=== PATIENT | male | born 1950 | race Caucasian/White ===

== ENCOUNTER 2020-09-28 06:26 | Day surgery (SDC) | payer MEDICARE, OTHER, SELFPAY ==
--- NOTE | 2020-09-27 09:43 | P.CONAN_ITS ---
Documented by User: Kristina Denton 09/27/20 11:56 HPI - Anesthesia Eval Consult details Narrative: 70yo M for Colonoscopy xarelto for afib [facility] Past Medical History Medical History Atrial fibrillation Elevated cholesterol HTN (hypertension) Surgical History Surgical History History of inguinal hernia repair History of placement of ear tubes History of shoulder surgery Hx of colonoscopy Social History Social History Alcohol intake: current Alcohol intake frequency: a few times a month Smoking Status: Former smoker Smoking Quit Date: >10 years Use of substances other than those prescribed or required for medical reasons: No Have you been hit, kicked, punched, or otherwise hurt by someone within the past year? If so, by whom?: No Advance Directives: No Advance Directives Information Provided: Yes Recently lost weight without trying: No Meds Allergies Allergy/AdvReac Type Severity Reaction Status Date / Time No Known Allergies Allergy Unverified 05/26/20 15:23 Home Medications Medication Instructions Recorded Confirmed Type metoprolol succinate 1 tab PO DAILY 09/27/20 09/28/20 History omega-3 fatty acids-vitamin E cap PO DAILY 09/27/20 History [Fish Oil] rivaroxaban [Xarelto] 1 tab PO BEDTIME 09/27/20 09/28/20 History simvastatin 1 tab PO BEDTIME 09/27/20 09/27/20 History Exam Exam Date and Time: September 27, 2020 0943 Assessment and Plan Assessment Anesthesia Assessment: Chart Reviewed Documented by User: Bogdan Montenegro MD 09/28/20 07:28 [facility] Past Medical History Medical History Atrial fibrillation Elevated cholesterol HTN (hypertension) Surgical History Surgical History History of inguinal hernia repair History of placement of ear tubes History of shoulder surgery Hx of colonoscopy Social History Social History Alcohol intake: current Alcohol intake frequency: a few times a month Smoking Status: Former smoker Smoking Quit Date: >10 years Use of substances other than those prescribed or required for medical reasons: No Have you been hit, kicked, punched, or otherwise hurt by someone within the past year? If so, by whom?: No Advance Directives: No Advance Directives Information Provided: Yes Recently lost weight without trying: No Meds Allergies Allergy/AdvReac Type Severity Reaction Status Date / Time No Known Allergies Allergy Unverified 05/26/20 15:23 Home Medications Medication Instructions Recorded Confirmed Type metoprolol succinate 1 tab PO DAILY 09/27/20 09/28/20 History omega-3 fatty acids-vitamin E cap PO DAILY 09/27/20 History [Fish Oil] rivaroxaban [Xarelto] 1 tab PO BEDTIME 09/27/20 09/28/20 History simvastatin 1 tab PO BEDTIME 09/27/20 09/27/20 History Exam Airway Mallampati Class: II TM Dist: >3cm Neck ROM: Full Loose/Missing/Broken Teeth: No Heart: RRR Lungs: NL Other: AO Assessment and Plan Assessment Anesthesia Assessment: Anesthesia Plan Discussed and Chart Reviewed Final Anesthetic Review NPO: Yes ASA Class: II Final Preanesthetic Review: No Changes in Pt Med Stat, Meds/Allgs Chart Reviewed, Consent Obtained/Reviewed and Anes Risks/Benef Reviewed Patient Risk: Intermediate Procedure Risk: Low Anesthetic Plan Anesthetic Plan: GA Disposition: Standard PACU
[2020-09-28 06:40] VITALS: BMI 30.9
[2020-09-28 06:46] VITALS: BP 170/67; PULSE 98; RESP 18; TEMP 36.1; O2SAT 96
[2020-09-28 06:56] VITALS: BP 148/95; PULSE 100; RESP 18; TEMP 36.1; O2SAT 96
[2020-09-28] MEDS: Lactated Ringers 1,000 ML 100 ML IVCONT (06:56)
[2020-09-28 08:14] VITALS: BP 96/59; PULSE 60; RESP 16; TEMP 36.7; O2SAT 96
--- NOTE | 2020-09-28 08:18 | PM.OP ---
Brief Operative Note Date of Service: 09/28/20 Pre-op diagnosis: Screening Post-op diagnosis: other (Colon polyps, Diverticulosis) Procedure: Colonoscopy to cecum and TI with biopsy and removal of polyps Surgeon: Zoran Medeiros Anesthesia: MAC Estimated blood loss (mL): 3.0 Pathology: other (A. Polyp at 20cm B. Polyp at 30cm C. Cecal polyp D. Polyp at 50cm) Condition: stable Disposition: PACU
[2020-09-28 08:29] VITALS: BP 116/68; PULSE 53; RESP 17; TEMP 36.7; O2SAT 98
--- NOTE | 2020-09-28 08:43 | OP_ITS ---
SURGEON: Zoran Medeiros MD INDICATIONS: The patient presents for evaluation of colorectal cancer screening and history of colon polyps. Full consent has been obtained from him for this, including risks of bleeding and perforation. PREOPERATIVE DIAGNOSIS: POSTOPERATIVE DIAGNOSIS: PROCEDURE PERFORMED: Colonoscopy to cecum and terminal ileum with biopsy and removal of polyps. ESTIMATED BLOOD LOSS: COMPLICATIONS: ANESTHESIA: Monitored anesthesia care. ASSISTANTS: SPECIMENS: PREOPERATIVE DIAGNOSES: Colorectal cancer screening and personal history of tubular adenoma of the colon. POSTOPERATIVE DIAGNOSES: Colorectal cancer screening and personal history of tubular adenoma of the colon, colon polyps, diverticulosis, and internal hemorrhoids. DESCRIPTION OF PROCEDURE: The patient was placed in the left lateral decubitus position. The digital rectal exam revealed a somewhat tight anal sphincter. The Olympus video pediatric colonoscope was entered into the rectum and advanced to the cecum with the assistance of abdominal wall pressure. Once in the cecum, I did identify normal-appearing cecal pouch other than a 3 or 4 mm polyp, which was biopsied and completely removed with cold biopsy forceps. The terminal ileum was cannulated and appeared normal. The scope was withdrawn back in the colon. The remainder of the cecum appeared normal. The scope was slowly withdrawn assessing all mucosal surfaces carefully. Preparation was excellent. At 50 cm, at 30 cm, and at 20 cm, were flat approximately 4 mm polyps, which were all biopsied and completely removed with cold biopsy forceps. I did not visualize any other polyps, colitis, or angiodysplasia. There was a mild amount of sigmoid diverticulosis. In the rectum, scope was retroflexed visualizing internal hemorrhoids, but no other pathology. The rectal mucosa appeared normal. The scope was straightened out and withdrawn from the patient. He tolerated the procedure well and was returned to the recovery area in stable condition. IMPRESSION: 1. Small colon polyps, status post biopsy removal. 2. Diverticulosis. 3. Internal hemorrhoids. PLAN: The results of the biopsies will be checked. I would recommend a repeat colonoscopy in 5 years for further surveillance. He was advised to resume his Xarelto within 48 hours. He will otherwise see me on a p.r.n. basis. MD MEAGAN Zee/GONZALEZL / [id number]
== END 2020-09-28 09:10 | disposition home or self-care (01) ==
PROVIDERS: Visit Provider Internal Medicine
PROC: 0DJD8ZZ Inspection of Lower Intestinal Tract, Via Natural or Artificial Opening Endoscopic (ICD-10-PCS; CPT 45378; principal; 2020-09-28 07:30)
DX: Z12.11 Encounter for screening for malignant neoplasm of colon (principal); Z86.010 Personal history of colon polyps; D12.0 Benign neoplasm of cecum; D12.5 Benign neoplasm of sigmoid colon; K57.30 Diverticulosis of large intestine without perforation or abscess without bleeding; K64.8 Other hemorrhoids; I48.91 Unspecified atrial fibrillation; I10 Essential (primary) hypertension; Z79.01 Long term (current) use of anticoagulants; Z79.899 Other long term (current) drug therapy; Z87.891 Personal history of nicotine dependence
CPT/HCPCS: 45380; 88305

== ENCOUNTER 2020-11-06 05:51 | Inpatient (IN) | payer MEDICARE, MEDICAID, SELFPAY ==
[2020-11-06] VITALS (9 sets, daily range): BP systolic 99–153; BP diastolic 54–86; PULSE 46–67; RESP 15–22; TEMP 36.6–37.2; O2SAT 95–98; BMI 23.1
--- NOTE | 2020-11-06 | ECG_ITS ---
Test Reason : CHEST PAIN Blood Pressure : / mmHG Vent. Rate : 047 BPM Atrial Rate : 047 BPM P-R Int : 150 ms QRS Dur : 090 ms QT Int : 456 ms P-R-T Axes : 039 -07 020 degrees QTc Int : 403 ms Sinus bradycardia with sinus arrhythmia Otherwise normal ECG When compared with ECG of 04-AUG-2019 17:35, No significant change was found Referred By: Generic ED Physician Electronically Signed By:LENNY ROSARIO
--- NOTE | ~2020-11-06 | XR_ITS ---
EXAMINATION: XR CHEST CLINICAL INFORMATION: Chest pain COMPARISON: Prior chest July 2019. TECHNIQUE: Frontal view of the chest was obtained. FINDINGS: Lungs and pleural spaces: Minimal linear opacity at the right base likely atelectasis. Lungs otherwise clear. Cardiac silhouette mediastinum pulmonary vascularity normal. Bone and soft tissues unremarkable. XR/XR chest 1V IMPRESSION: Minimal linear opacity at the right base likely discoid atelectasis.
--- NOTE | 2020-11-06 06:08 | ED_ITS ---
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 this morning without associated headache/dizziness/shortness of breath, but states he felt mildly nauseous and ate too close of garlic with resolution chest pain and went back to sleep. Unfortunately, patient was awoken again at 5:30 a.m. with the same character of pain that has completely resolved and patient states resolved when he stood up but because it has happened twice he chose to get further evaluated in the emergency room. Otherwise, he denies any recent fever, chills, cough, GI symptoms, or symptoms. He does endorse that he had been instructed to see a foam dispenser previously but decided not to go. Related Data Home Medications Medication Instructions Recorded Confirmed metoprolol succinate 1 tab PO DAILY 09/27/20 09/28/20 omega-3 fatty acids-vitamin E cap PO DAILY 09/27/20 [Fish Oil] rivaroxaban [Xarelto] 1 tab PO BEDTIME 09/27/20 09/28/20 simvastatin 1 tab PO BEDTIME 09/27/20 09/27/20 Allergies Allergy/AdvReac Type Severity Reaction Status Date / Time No Known Allergies Allergy Verified 11/06/20 06:01 Review of Systems Review of Systems: Pertinent positives and negatives as stated in HPI 10 point review of systems is otherwise negative. [facility] Past Medical History Source: nursing notes reviewed Medical History Atrial fibrillation Elevated cholesterol HTN (hypertension) Surgical History History of inguinal hernia repair History of placement of ear tubes History of shoulder surgery Hx of colonoscopy Social History Social History Alcohol intake: current Alcohol intake frequency: a few times a month Smoking Status: Former smoker Advance Directives: No Advance Directives Information Provided: No Physical Exam Vital Signs: Vital Signs: Last Vital Signs Temp 98 F 11/06/20 06:01 Pulse 48 L 02/28/21 07:24 Resp 18 11/06/20 07:24 BP 141/78 H 11/06/20 07:24 Pulse Ox 97 11/06/20 07:24 Body Mass Index 23.1 VITAL SIGNS: Reviewed. GENERAL: Well developed, well nourished, in no acute distress. HEAD: Normocephalic/atraumatic EYES: PERRLA, EOMI NOSE: Nares patent bilateral OROPHARYNX: no oral lesions noted, posterior pharynx clear NECK: Supple, no adenopathy LUNGS: Normal breath sounds. No adventitious sounds or accessory muscle use. SpO2<97> CARDIOVASCULAR: Regular rate and rhythm without noted murmurs, no JVD or lower extremity edema. ABDOMEN: Soft, non-tender, non-distended with bowel sounds. NEUROLOGIC: Alert and oriented x 4. Course Course Course Narrative: This is a 70-year-old male with history and clinical presentation most consistent with suspected acid reflux but will rule out cardiopulmonary etiologies. Review of all investigations negative for any acute findings other than an elevated high sensitivity troponin without correlating EKG changes and patient is currently asymptomatic. Will repeat the troponin and if negative patient may be discharged to home with strong recommendations to follow up with Cardiology. Signed out to Dr Dyer: f/u hsTrop #2 MDM - Chest Pain Lab Data Result diagrams: 11/06/20 06:34 11/06/20 06:34 Labs: Lab Results 11/06/20 11/06/20 11/06/20 Range/Units 06:34 06:34 06:34 WBC 9.5 (4.8-10.8) X10*3/uL RBC 4.63 (4.60-5.80) X10*6/uL Hgb 14.1 (14.0-18.0) g/dl Hct 43.0 (42-52) % MCV 92.9 (80-98) fL MCH 30.5 (27.0-33.0) pg MCHC 32.8 (31.0-36.0) g/dl RDW 13.6 (11.0-16.0) % Plt Count 192 (160-400) X10*3/uL MPV 11.8 (9.4-12.4) fL Immature Gran % (Auto) 0.4 (0.0-0.4) % Neut % (Auto) 51.7 (45-73) % Lymph % (Auto) 27.3 (20-40) % [place] % (Auto) 10.2 (2-11) % Eos % (Auto) 9.7 H (0-4) % Baso % (Auto) 0.7 (0-2) % Lymph # (Auto) 2.6 (1.2-4.9) X10*3/uL [place] # (Auto) 1.0 (0.1-1.2) X10*3/uL Eos # (Auto) 0.9 H (0.0-0.4) X10*3/uL Baso # (Auto) 0.1 (0.0-0.2) X10*3/uL Abs Immat Gran (auto) 0.04 H (0.00-0.03) X10*3/uL Absolute Neuts (auto) 4.9 (2.0-8.3) X10*3/uL Absolute Nucleated RBC 0.000 (0.0-0.012) X10*3/uL Nucleated RBC % (auto) 0.0 (0.0-0.2) /100WBC PT (10.8-13.0) SEC INR (0.9-1.1) Sodium 140 (135-145) mmol/L Potassium 3.8 (3.3-5.1) mmol/L Chloride 106 (96-108) mmol/L Carbon Dioxide 29 (22-29) mmol/L Anion Gap 9 L (12-20) BUN 22 H (9-16) mg/dL Creatinine 0.81 (0.5-1.4) mg/dL Estim Creat Clear Calc 69.0 Estimated GFR > 60 Random Glucose 96 (60-115) mg/dL Calcium 8.4 (8.4-10.2) mg/dL Total Bilirubin 0.6 (0.0-1.0) mg/dL AST 12 (5-37) U/L ALT 16 (0-40) U/L Alkaline Phosphatase 80 (39-117) U/L Troponin I High Sens 95.4 H (<3.5-35.0) ng/L Total Protein 6.2 L (6.5-8.0) g/dL Albumin 3.8 (3.5-5.0) g/dL 11/06/20 Range/Units 06:34 WBC (4.8-10.8) X10*3/uL RBC (4.60-5.80) X10*6/uL Hgb (14.0-18.0) g/dl Hct (42-52) % MCV (80-98) fL MCH (27.0-33.0) pg MCHC (31.0-36.0) g/dl RDW (11.0-16.0) % Plt Count (160-400) X10*3/uL MPV (9.4-12.4) fL Immature Gran % (Auto) (0.0-0.4) % Neut % (Auto) (45-73) % Lymph % (Auto) (20-40) % [place] % (Auto) (2-11) % Eos % (Auto) (0-4) % Baso % (Auto) (0-2) % Lymph # (Auto) (1.2-4.9) X10*3/uL [place] # (Auto) (0.1-1.2) X10*3/uL Eos # (Auto) (0.0-0.4) X10*3/uL Baso # (Auto) (0.0-0.2) X10*3/uL Abs Immat Gran (auto) (0.00-0.03) X10*3/uL Absolute Neuts (auto) (2.0-8.3) X10*3/uL Absolute Nucleated RBC (0.0-0.012) X10*3/uL Nucleated RBC % (auto) (0.0-0.2) /100WBC PT 11.3 (10.8-13.0) SEC INR 1.0 (0.9-1.1) Sodium (135-145) mmol/L Potassium (3.3-5.1) mmol/L Chloride (96-108) mmol/L Carbon Dioxide (22-29) mmol/L Anion Gap (12-20) BUN (9-16) mg/dL Creatinine (0.5-1.4) mg/dL Estim Creat Clear Calc Estimated GFR Random Glucose (60-115) mg/dL Calcium (8.4-10.2) mg/dL Total Bilirubin (0.0-1.0) mg/dL AST (5-37) U/L ALT (0-40) U/L Alkaline Phosphatase (39-117) U/L Troponin I High Sens (<3.5-35.0) ng/L Total Protein (6.5-8.0) g/dL Albumin (3.5-5.0) g/dL ECG Data ECG #1: Attestation: I personally reviewed and interpreted this ECG as follows: Prior ECG tracings: available for review (08/04/2019 no acute changes on comparison) Interpretation: Sinus bradycardia, HR -47, no evidence of acute ischemia, [place]/QRS/QTC are within normal limits. Discharge Plan Discharge Prescriptions: No Action simvastatin 20 mg tablet 1 tab PO BEDTIME RF: 0 metoprolol succinate 25 mg tablet extended release 24 hr 1 tab PO DAILY RF: 0 Fish Oil 1,000 mg Capsule PO DAILY RF: 0 Xarelto 20 mg tablet 1 tab PO BEDTIME RF: 0
[2020-11-06] MEDS: Lidocaine HCl Viscous 2 % 15 ML SOLUTION 10 ML MUCOUS MEM (06:18)
[2020-11-06] MEDS: Magnesium Hydrox/Alum Hydrox 30 ML ORAL.SUSP PO (06:18)
[2020-11-06 06:42] LABS: MANUAL DIFF FLAG NO
[2020-11-06 06:46] LABS: Basophils Absolute Auto 0.1 X10*3/uL (0.0-0.2); Basophils Percent Auto 0.7 % (0-2); Eosinophils Absolute Auto 0.9 X10*3/uL (0.0-0.4); Eosinophils Percent Auto 9.7 % (0-4); Hemoglobin 14.1 g/dl (14.0-18.0); Imm Gran Abs Auto 0.04 X10*3/uL (0.00-0.03); Imm Gran Pct Auto 0.4 % (0.0-0.4); Lymphocytes Absolute Auto 2.6 X10*3/uL (1.2-4.9); Lymphocytes Percent Auto 27.3 % (20-40); Mean Corpuscular HGB Conc 32.8 g/dl (31.0-36.0); Mean Corpuscular Hemoglobin 30.5 pg (27.0-33.0); Mean Corpuscular Volume 92.9 fL (80-98); Mean Platelet Volume 11.8 fL (9.4-12.4); Monocytes Percent Auto 10.2 % (2-11); Neutrophils Absolute Auto 4.9 X10*3/uL (2.0-8.3); Neutrophils Percent Auto 51.7 % (45-73); Platelet Count 192 X10*3/uL (160-400); Red Blood Count 4.63 X10*6/uL (4.60-5.80); Red Cell Distribution Width 13.6 % (11.0-16.0); White Blood Count 9.5 X10*3/uL (4.8-10.8)
[2020-11-06 07:16] LABS: Alanine Aminotransferase 16 U/L (0-40); Albumin Level 3.8 g/dL (3.5-5.0); Alkaline Phosphatase 80 U/L (39-117); Aspartate Amino Transferase 12 U/L (5-37); Bilirubin Total 0.6 mg/dL (0.0-1.0); Blood Urea Nitrogen 22 mg/dL (9-16); Calcium 8.4 mg/dL (8.4-10.2); Estimated Glomerular Filt Rate > 60; Glucose Random 96 mg/dL (60-115); Total Protein 6.2 g/dL (6.5-8.0)
[2020-11-06 07:20] LABS: Troponin-I High Sensitivity 95.4 ng/L (<3.5-35.0)
[2020-11-06 07:24] LABS: Anion Gap 9 (12-20); Carbon Dioxide 29 mmol/L (22-29); Chloride 106 mmol/L (96-108); Potassium 3.8 mmol/L (3.3-5.1); Sodium 140 mmol/L (135-145)
[2020-11-06 08:12] LABS: Prothrombin Time 11.3 SEC (10.8-13.0)
[2020-11-06 09:43] LABS: Troponin-I High Sensitivity 155.4 ng/L (<3.5-35.0)
[2020-11-06] MEDS: Aspirin 81 MG TAB.CHEW 162 MG PO (10:09)
[2020-11-06 10:29] LABS: Partial Thromboplastin Time 35.2 SEC (24.1-38.0)
[2020-11-06] MEDS: Atorvastatin Calcium 80 MG TABLET PO (10:31)
[2020-11-06] MEDS: Enoxaparin Sodium 60 MG/0.6 ML SYRINGE SUBCUT ×2 (10:35→21:35)
--- NOTE | 2020-11-06 10:55 | P.CONCA_ITS ---
History of Present Illness History of Present Illness Date of Service: 11/06/20 Consult reason: other (Acute coronary syndrome) Chief complaint: CHEST BURNING Narrative: Thank you for asking us to see Tasha in cardiology consultation today. He is a pleasant active 70-year-old man who woke up this morning around 03:00 with retrosternal chest burning. He then took some garlic symptoms receded and he went back to sleep. Symptoms then recurred around 05:00. Then symptoms receded again and then started again and he decided to come to the emergency room. In the emergency room on evaluation his 1st troponin was 95.4 and subsequent troponin 155.4 with more than 50% delta. He is currently feeling completely back to normal. His EKG has not been uploaded into the system. However reported by the ED physician is no significant ischemic changes. He is currently chest pain free. He says in the last year he has had few episodes of precordial retrosternal chest burning some with exertion some without. He did not pay much attention to it. He has prior history of hypertension, hyperlipidemia and strong family history for coronary disease. His blood pressu re is elevated. His heart rate is low, takes metoprolol at home. Review of Systems Constitutional: Constitutional: Denies chills, Denies fatigue, Denies fever(s) and Denies poor appetite Cardiovascular: Cardiovascular: Reports chest pain at rest, Denies lightheadedness, Denies Loss of Consciousness, Denies palpitations, Denies dyspnea and Denies dyspnea on exertion Respiratory: Respiratory: Denies cough, Denies excessive phlegm production, Denies dyspnea and Denies dyspnea on exertion Gastrointestinal: Gastrointestinal: Reports no additional gastrointestinal complaints Genitourinary: Genitourinary: Reports no additional male genitourinary complaints Neurologic: Reports system reviewed and no additional complaints, except as documented Psychiatric: Psychiatric: Reports no additional psychiatric complaints Endocrine: Endocrine: Reports no additional endocrine complaints, Denies fatigue and Denies palpitations Hematologic/Lymphatic: Hematologic/Lymphatic: Reports no additional hematologic/lymphatic complaints [facility] Past Medical History Medical History Atrial fibrillation Elevated cholesterol HTN (hypertension) Surgical History Surgical History History of inguinal hernia repair History of placement of ear tubes History of shoulder surgery Hx of colonoscopy Social History Social History Alcohol intake: current Alcohol intake frequency: a few times a month Smoking Status: Former smoker Advance Directives: No Advance Directives Information Provided: No Meds Allergies Allergy/AdvReac Type Severity Reaction Status Date / Time No Known Allergies Allergy Verified 11/06/20 06:01 Home Medications Medication Instructions Recorded Confirmed Last Taken Type metoprolol succinate 1 tab PO DAILY 09/27/20 09/28/20 09/28/20 History omega-3 fatty acids-vitamin E cap PO DAILY 09/27/20 09/19/20 History [Fish Oil] rivaroxaban [Xarelto] 1 tab PO BEDTIME 09/27/20 09/28/20 09/19/20 History simvastatin 1 tab PO BEDTIME 09/27/20 09/27/20 Unknown History Physical Exam Vital Signs: Vital Signs: Last Vital Signs Temp 98 F 11/06/20 06:01 Pulse 46 L 11/06/20 10:00 Resp 15 11/06/20 10:00 BP 153/86 H 11/06/20 10:00 Pulse Ox 98 11/06/20 10:00 Body Mass Index 23.1 Const: General: cooperative, comfortable, no acute distress, well developed, alert and awake Nutritional Appearance: average body habitus Orientation/consciousness: patient oriented x3 Limitations: no limitations HENMT: Head: Yes normocephalic and Yes atraumatic Neck: Neck: Yes trachea midline, Yes supple and Yes no JVD Resp: Effort & Inspection: normal respiratory effort Auscultation: clear to auscultation bilaterally Cardio: Jugular venous distension: no JVD Palpation: normal PMI Rate: regular rate Rhythm: regular rhythm Heart sounds: S1 normal heart sound present and S2 normal heart sound present GI: Auscultation: normal bowel sounds Skin: General skin exam: no rashes or lesions noted Neuro: General: patient oriented x3 and no focal motor deficits Extrem: General: Yes no clubbing, cyanosis or edema Psych: Appearance: grossly normal Results Labs and Meds Result diagrams: 11/06/20 06:34 11/06/20 06:34 Lab results: Laboratory Results - last 24 hr 11/06/20 11/06/20 11/06/20 06:34 06:34 06:34 WBC 9.5 RBC 4.63 Hgb 14.1 Hct 43.0 MCV 92.9 MCH 30.5 MCHC 32.8 RDW 13.6 Plt Count 192 MPV 11.8 Immature Gran % (Auto) 0.4 Neut % (Auto) 51.7 Lymph % (Auto) 27.3 [place] % (Auto) 10.2 Eos % (Auto) 9.7 H Baso % (Auto) 0.7 Lymph # (Auto) 2.6 [place] # (Auto) 1.0 Eos # (Auto) 0.9 H Baso # (Auto) 0.1 Abs Immat Gran (auto) 0.04 H Absolute Neuts (auto) 4.9 Absolute Nucleated RBC 0.000 Nucleated RBC % (auto) 0.0 PT INR APTT Sodium 140 Potassium 3.8 Chloride 106 Carbon Dioxide 29 Anion Gap 9 L BUN 22 H Creatinine 0.81 Estim Creat Clear Calc 69.0 Estimated GFR > 60 Random Glucose 96 Calcium 8.4 Total Bilirubin 0.6 AST 12 ALT 16 Alkaline Phosphatase 80 Troponin I High Sens 95.4 H Total Protein 6.2 L Albumin 3.8 11/06/20 11/06/20 06:34 09:08 WBC RBC Hgb Hct MCV MCH MCHC RDW Plt Count MPV Immature Gran % (Auto) Neut % (Auto) Lymph % (Auto) [place] % (Auto) Eos % (Auto) Baso % (Auto) Lymph # (Auto) [place] # (Auto) Eos # (Auto) Baso # (Auto) Abs Immat Gran (auto) Absolute Neuts (auto) Absolute Nucleated RBC Nucleated RBC % (auto) PT 11.3 INR 1.0 APTT 35.2 Sodium Potassium Chloride Carbon Dioxide Anion Gap BUN Creatinine Estim Creat Clear Calc Estimated GFR Random Glucose Calcium Total Bilirubin AST ALT Alkaline Phosphatase Troponin I High Sens 155.4 H D Total Protein Albumin Imaging Radiologist's impression: Impressions Chest X-Ray 11/06/20 06:05 IMPRESSION: Minimal linear opacity at the right base likely discoid atelectasis. Assessment and Plan (1) Acute coronary syndrome: Status: Acute Patient presents with symptoms consistent with acute coronary syndrome with troponin elevation with more than 50% delta. EKG does not show any significant changes. Continue to manage aggressively ischemia. Control blood pressure, start nitro paste. Hold off on metoprolol given his bradycardia at this point time. Aspirin, full anticoagulation with Lovenox and high-intensity statin therapy to be started. Currently patient is chest pain-free. Will require cardiac catheterization. Had a detailed discussion with patient a card iac catheterization including risks, benefits, alternatives 2nd opinion. This being the most prep febrile approach. He has understand and agreeable. Will most likely transfer to [facility] tomorrow after an echocardiogram. He has history of ?atrial fibrillation?, no clear documentat ion. Will need to be pursued as outpatient. Currently not on oral anticoagulation. Will follow with the patient. Thank you for allowing us to partake in his care Procedures Date of Service Date of Service: 11/06/20
[2020-11-06 11:27] LABS: COVID-19 Test Negative (Negative)
--- NOTE | 2020-11-06 12:42 | P.HPHOSP_ITS ---
History of Present Illness Date of Service: 11/06/20 Chief Complaint: Chest pain This is a 70 year old male with history of HTN, HLD who presents with burning chest pain. His pain started around 3 am and was described as burning in nature and 20/10 in severity. He had associated nausea, but not shortness of breath. His symptoms resolved but then returned around 530. This prompted him to come to the emergency department for evaluation. He reports previous episodes that were similar but never as severe. His initial troponin was 95 this increased to 155. The cardiologists were consulted and recommended starting anticoagulation with Lovenox and admission for further management. EKG showed no acute ischemic changes. The remainder of his lab work was unremarkable. Review of Systems Review of Systems: Yes all other systems are reviewed and are negative Constitutional: Constitutional: Denies chills and Denies fever(s) Cardiovascular: Cardiovascular: Reports chest pain and Denies palpitations Respiratory: Respiratory: Denies cough Gastrointestinal: Gastrointestinal: Denies abdominal pain Endocrine: Endocrine: Denies palpitations [facility] Medical History Atrial fibrillation Elevated cholesterol HTN (hypertension) Functional capacity: independent ambulation Family History Other CAD (coronary artery disease) Surgical History History of inguinal hernia repair History of placement of ear tubes History of shoulder surgery Hx of colonoscopy Social History Alcohol intake: current Alcohol intake frequency: a few times a month Smoking Status: Former smoker Advance Directives: No Advance Directives Information Provided: No Meds Allergies Allergy/AdvReac Type Severity Reaction Status Date / Time No Known Allergies Allergy Verified 11/06/20 06:01 Active Medications: Current Medications Generic Name Dose Route Start Last Admin Trade Name Freq PRN Reason Stop Dose Admin Enoxaparin Sodium 60 mg 11/06/20 12:33 Enoxaparin Sodium 80 Mg/0.8 Ml Syringe 1 mg/kg (60 mg) SUBCUT Q12H [facility] Nitroglycerin 1 inch 11/06/20 14:00 Nitroglycerin 2 % Oint 1 Gm Packet TRANSDERMA RQ6H WHILE AWAKE TOMER Home Medications Medication Instructions Recorded Confirmed Last Taken Type metoprolol succinate 1 tab PO DAILY 09/27/20 09/28/20 11/05/20 History omega-3 fatty acids-vitamin E cap PO DAILY 09/27/20 11/05/20 History [Fish Oil] rivaroxaban [Xarelto] 1 tab PO BEDTIME 09/27/20 09/28/20 09/19/20 History simvastatin 1 tab PO BEDTIME 09/27/20 09/27/20 11/05/20 History Physical Exam Vital Signs and Narrative: Vital Signs: Last Vital Signs Temp 98 F 11/06/20 06:01 Pulse 46 L 11/06/20 10:00 Resp 15 11/06/20 10:00 BP 153/86 H 11/06/20 10:00 Pulse Ox 98 11/06/20 10:00 Body Mass Index 23.1 Const: Nutritional Appearance: well nourished Orientation/consciousness: patient oriented x3 HENMT: Head: Yes normocephalic and Yes atraumatic Eyes: Sclerae: sclerae normal Chest: Chest palpation & inspection: normal inspection of the chest Resp: Effort & Inspection: normal respiratory effort and no respiratory distress Auscultation: clear to auscultation bilaterally Cardio: Rate: regular rate Rhythm: regular rhythm GI: Palpation (GI): Soft to palpation and nontender Skin: General skin exam: no rashes or lesions noted Neuro: General: patient oriented x3 Cranial nerves: Yes CN's II-XII intact bilaterally and Yes Bilaterally intact EOM present Extrem: General: Yes normal to inspection Results Labs CBC and Chem 7: 11/06/20 06:34 11/06/20 06:34 Labs: Laboratory Results - last 24 hr 11/06/20 11/06/20 11/06/20 06:34 06:34 06:34 MCV 92.9 MCH 30.5 MCHC 32.8 RDW 13.6 Plt Count 192 MPV 11.8 Immature Gran % (Auto) 0.4 Neut % (Auto) 51.7 Lymph % (Auto) 27.3 [place] % (Auto) 10.2 Eos % (Auto) 9.7 H Baso % (Auto) 0.7 Lymph # (Auto) 2.6 [place] # (Auto) 1.0 Eos # (Auto) 0.9 H Baso # (Auto) 0.1 Abs Immat Gran (auto) 0.04 H Absolute Neuts (auto) 4.9 Absolute Nucleated RBC 0.000 Nucleated RBC % (auto) 0.0 PT INR APTT Anion Gap 9 L Estim Creat Clear Calc 69.0 Estimated GFR > 60 Random Glucose 96 Calcium 8.4 Total Bilirubin 0.6 AST 12 ALT 16 Alkaline Phosphatase 80 Troponin I High Sens 95.4 H Total Protein 6.2 L Albumin 3.8 COVID-19 ([facility]) COVID-19 Clin Com 11/06/20 11/06/20 11/06/20 06:34 09:08 11:05 MCV MCH MCHC RDW Plt Count MPV Immature Gran % (Auto) Neut % (Auto) Lymph % (Auto) [place] % (Auto) Eos % (Auto) Baso % (Auto) Lymph # (Auto) [place] # (Auto) Eos # (Auto) Baso # (Auto) Abs Immat Gran (auto) Absolute Neuts (auto) Absolute Nucleated RBC Nucleated RBC % (auto) PT 11.3 INR 1.0 APTT 35.2 Anion Gap Estim Creat Clear Calc Estimated GFR Random Glucose Calcium Total Bilirubin AST ALT Alkaline Phosphatase Troponin I High Sens 155.4 H D Total Protein Albumin COVID-19 ([facility]) Negative COVID-19 Clin Com See Note Imaging Radiologist's Impressions: Impressions Chest X-Ray 11/06/20 06:05 IMPRESSION: Minimal linear opacity at the right base likely discoid atelectasis. Assessment and Plan (1) Non-STEMI (non-ST elevated myocardial infarction): Status: Acute This is a 70 year old male with a history of HTN, HLD who presents to the ED with Chest pain found to have NSTEMI NSTEMI -asa, statin -hold BB for bradycardia -AC with Lovenox -ECHO -trend troponin -nitro paste q6h -eval by cardiology, plan for d/c to [facility] tomorrow for cardiac cath afib ?on xarelto at home but stopped taking 1 week ago due to bleeding gums Med rec pending at this time DVT ppx - lovenox code status - full code this case was discussed with Dr. Peres
[2020-11-06] MEDS: Nitroglycerin 2 % Oint 1 GM Packet 1 INCH TRANSDERMA (13:49)
[2020-11-06] MEDS: 0.9 % Sodium Chloride Flush 3 ML SYRINGE IVFLUSH ×2 (19:22→23:53)
[2020-11-07 03:18] VITALS: BP 108/68; PULSE 75; RESP 18; TEMP 36.3; O2SAT 96
[2020-11-07 06:41] LABS: MANUAL DIFF FLAG NO
[2020-11-07 06:51] LABS: Basophils Absolute Auto 0.1 X10*3/uL (0.0-0.2); Basophils Percent Auto 0.7 % (0-2); Eosinophils Absolute Auto 0.9 X10*3/uL (0.0-0.4); Hematocrit 42.7 % (42-52); Hemoglobin 13.9 g/dl (14.0-18.0); Imm Gran Abs Auto 0.04 X10*3/uL (0.00-0.03); Imm Gran Pct Auto 0.4 % (0.0-0.4); Lymphocytes Absolute Auto 2.6 X10*3/uL (1.2-4.9); Lymphocytes Percent Auto 26.2 % (20-40); Mean Corpuscular HGB Conc 32.6 g/dl (31.0-36.0); Mean Corpuscular Hemoglobin 30.2 pg (27.0-33.0); Mean Corpuscular Volume 92.6 fL (80-98); Mean Platelet Volume 12.3 fL (9.4-12.4); Monocytes Absolute Auto 1.1 X10*3/uL (0.1-1.2); Neutrophils Absolute Auto 5.2 X10*3/uL (2.0-8.3); Neutrophils Percent Auto 52.7 % (45-73); Platelet Count 192 X10*3/uL (160-400); Red Blood Count 4.61 X10*6/uL (4.60-5.80); Red Cell Distribution Width 13.6 % (11.0-16.0); White Blood Count 9.8 X10*3/uL (4.8-10.8)
[2020-11-07 07:21] VITALS: BP 122/69; PULSE 54; RESP 16; TEMP 36.6; O2SAT 94
[2020-11-07 07:29] LABS: Anion Gap 11 (12-20); Blood Urea Nitrogen 21 mg/dL (9-16); Calcium 8.3 mg/dL (8.4-10.2); Carbon Dioxide 29 mmol/L (22-29); Chloride 105 mmol/L (96-108); Estimated Glomerular Filt Rate > 60; Glucose Random 96 mg/dL (60-115); Sodium 141 mmol/L (135-145)
--- NOTE | 2020-11-07 08:57 | MHC.CM.PN ---
CM met with Patient and his Granddaughter,who is a [employer] Employee, at bedside. Patient lives alone in an apartment with no DME nor services. Patient is being transferred to [facility] later today. IMM addressed with Patient and original has been given to him and a copy has been placed on the chart.
[2020-11-07] MEDS: Enoxaparin Sodium 60 MG/0.6 ML SYRINGE SUBCUT (09:12)
[2020-11-07] MEDS: Aspirin 81 MG TAB.CHEW PO (09:13)
[2020-11-07] MEDS: 0.9 % Sodium Chloride Flush 3 ML SYRINGE IVFLUSH ×2 (09:14→15:57)
--- NOTE | 2020-11-07 09:48 | PM.DS ---
DS: Providers Provider Date of Service: 11/07/20 Date of admission: 11/06/20 12:33 Primary care physician: [facility] Consults: 11/06/20 10:11 Consult to Cardiology Stat Consulting Provider: Herb Carrasco Reason for consultation: NSTEMI Has provider been notified: Yes DS: Diagnosis Discharge Diagnosis (1) Non-STEMI (non-ST elevated myocardial infarction): Status: Acute (2) Atrial fibrillation: Status: Acute (3) Bradycardia: Status: Acute DS: Medications Discharge Medications Home Medications: Home Medications Medication Instructions Recorded Confirmed omega-3 fatty acids-vitamin E 1 cap PO DAILY 09/27/20 11/06/20 Previous Rx's Medication Instructions Recorded aspirin 81 mg PO DAILY #30 tab 11/07/20 atorvastatin 80 mg PO BEDTIME #30 tab 11/07/20 enoxaparin 60 mg SUBCUT Q12H #60 ml 11/07/20 DS: Summary Hospital Course Hospital Course: Patient was admitted for non ST elevation myocardial infarction. His troponin peaked at 155.4, no significant ischemic EKG changes. His Xarelto was held and he was started on therapeutic Lovenox, his metoprolol was discontinued due to bradycardia, he was given aspirin and statin therapy was increased to high-intensity. Patient's chest pain has now resolved. Echocardiogram was done, but report is still pending. Patient was seen by Cardiology recommended transfer to [facility] for cardiac catheterization. Time Spent with Patient Time attestation: Total time spent providing and/or coordinating discharge services: Discharge coordination time: Greater than 30 minutes Physical Exam Vital Signs: Vital Signs: Last Vital Signs Temp 97.8 F 11/07/20 07:21 Pulse 54 11/07/20 07:21 Resp 16 11/07/20 07:21 BP 122/69 11/07/20 07:21 Pulse Ox 94 11/07/20 07:21 Body Mass Index 23.1 General: AO X 3, no acute distress Resp: CTA bilateral CVS: S1,S2,RRR GI: soft, non tender, non distended Neuro: motor grossly intact Psych: appropriate affect DS: Data Data Completed and Pending Labs on day of discharge: Laboratory Results - last 24 hr 11/06/20 11/06/20 11/06/20 06:34 11:05 13:22 WBC RBC Hgb Hct MCV MCH MCHC RDW Plt Count MPV Immature Gran % (Auto) Neut % (Auto) Lymph % (Auto) [place] % (Auto) Eos % (Auto) Baso % (Auto) Lymph # (Auto) [place] # (Auto) Eos # (Auto) Baso # (Auto) Abs Immat Gran (auto) Absolute Neuts (auto) Absolute Nucleated RBC Nucleated RBC % (auto) APTT 35.2 Sodium Potassium Chloride Carbon Dioxide Anion Gap BUN Creatinine Estim Creat Clear Calc Estimated GFR Random Glucose Calcium Troponin I High Sens 102.0 H COVID-19 ([facility]) Negative COVID-19 Clin Com See Note 11/07/20 11/07/20 06:05 06:05 WBC 9.8 RBC 4.61 Hgb 13.9 L Hct 42.7 MCV 92.6 MCH 30.2 MCHC 32.6 RDW 13.6 Plt Count 192 MPV 12.3 Immature Gran % (Auto) 0.4 Neut % (Auto) 52.7 Lymph % (Auto) 26.2 [place] % (Auto) 11.0 Eos % (Auto) 9.0 H Baso % (Auto) 0.7 Lymph # (Auto) 2.6 [place] # (Auto) 1.1 Eos # (Auto) 0.9 H Baso # (Auto) 0.1 Abs Immat Gran (auto) 0.04 H Absolute Neuts (auto) 5.2 Absolute Nucleated RBC 0.000 Nucleated RBC % (auto) 0.0 APTT Sodium 141 Potassium 4.0 Chloride 105 Carbon Dioxide 29 Anion Gap 11 L BUN 21 H Creatinine 0.81 Estim Creat Clear Calc 69.0 Estimated GFR > 60 Random Glucose 96 Calcium 8.3 L Troponin I High Sens COVID-19 ([facility]OLOR[facility]) COVID-19 Clin Com Discharge Plan Discharge Patient Disposition: Xfer Acute Care Hospital Referrals: [place] [Primary Care Provider] - Discharge Medications: New atorvastatin 80 mg Tablet 80 mg PO BEDTIME Qty: 30 RF: 0 aspirin 81 mg Tablet,Chewable 81 mg PO DAILY Qty: 30 RF: 0 enoxaparin 60 mg/0.6 mL Syringe 60 mg subcut Q12H Qty: 60 RF: 0 Continued omega-3 fatty acids-vitamin E 1,000 mg Capsule 1 cap PO DAILY RF: 0 Discontinued simvastatin 20 mg tablet 1 tab PO BEDTIME RF: 0 metoprolol succinate 25 mg tablet extended release 24 hr 1 tab PO DAILY RF: 0 Xarelto 20 mg tablet 1 tab PO BEDTIME RF: 0 Discharge Orders: Discharge Order (Routine); Ordered 11/07/20 Ordered By: Federico Youngblood Activity on Discharge: As tolerated Stand Alone Forms: Patient Portal Discharge page Care Plan Goals: work up ischemia Health Concerns: acs Plan of Treatment: transfer to [facility] for catheterization
--- NOTE | 2020-11-07 09:49 | P.PNCA_ITS ---
Subjective Subjective Date of Service: 11/07/20 Interval history: He had chest burning at nighttime leading to admission. Has had previous episodes of chest burning but nothing of this intensity. Otherwise he does not have any exertional anginal-type symptoms. Today states that he feels okay. Review of Systems Review of Systems Yes all other systems are reviewed and are negative Cardiovascular: Reports as per HPI, Reports no additional cardiovascular complaints, Denies acrocyanosis, Denies cool extremities, Denies painful fingertips, Denies chest pain, Denies chest pain at rest, Denies diaphoresis, Denies syncope, Denies irregular heart rhythm, Denies claudication, Denies leg edema, Denies lightheadedness, Denies palpitations and Denies dyspnea Respiratory: Denies dyspnea Denies syncope Endocrine: Denies palpitations Physical Exam Vital Signs: Last Vital Signs Temp 97.8 F 11/07/20 07:21 Pulse 54 11/07/20 07:21 Resp 16 11/07/20 07:21 BP 122/69 11/07/20 07:21 Pulse Ox 94 11/07/20 07:21 Body Mass Index 23.1 Const General: cooperative, comfortable and no acute distress Orientation/consciousness: patient oriented x3 HENPR Other: Unremarkable Neck Neck: Yes normal visual inspection Chest Chest palpation & inspection: normal inspection of the chest Resp Auscultation: clear to auscultation bilaterally, no crackles and no wheezes Cardio Jugular venous distension: no JVD Palpation: normal PMI Heart sounds: S1 normal heart sound present, S2 normal heart sound present, no gallops, no murmurs and no rubs GI Palpation (GI): Soft to palpation Back/Spine/Pelvis Other: unremarkable Skin General skin exam: no rashes or lesions noted Neuro General: patient oriented x3 Extrem General: Yes no clubbing, cyanosis or edema Psych Mental Status: mental status grossly normal Results Labs and Meds Result diagrams: 11/07/20 06:05 11/07/20 06:05 Lab results: Laboratory Results - last 24 hr 11/06/20 11/06/20 11/06/20 06:34 11:05 13:22 WBC RBC Hgb Hct MCV MCH MCHC RDW Plt Count MPV Immature Gran % (Auto) Neut % (Auto) Lymph % (Auto) [place] % (Auto) Eos % (Auto) Baso % (Auto) Lymph # (Auto) [place] # (Auto) Eos # (Auto) Baso # (Auto) Abs Immat Gran (auto) Absolute Neuts (auto) Absolute Nucleated RBC Nucleated RBC % (auto) APTT 35.2 Sodium Potassium Chloride Carbon Dioxide Anion Gap BUN Creatinine Estim Creat Clear Calc Estimated GFR Random Glucose Calcium Troponin I High Sens 102.0 H COVID-19 ([facility]OLOR[facility]) Negative COVID-19 Clin Com See Note 11/07/20 11/07/20 06:05 06:05 WBC 9.8 RBC 4.61 Hgb 13.9 L Hct 42.7 MCV 92.6 MCH 30.2 MCHC 32.6 RDW 13.6 Plt Count 192 MPV 12.3 Immature Gran % (Auto) 0.4 Neut % (Auto) 52.7 Lymph % (Auto) 26.2 [place] % (Auto) 11.0 Eos % (Auto) 9.0 H Baso % (Auto) 0.7 Lymph # (Auto) 2.6 [place] # (Auto) 1.1 Eos # (Auto) 0.9 H Baso # (Auto) 0.1 Abs Immat Gran (auto) 0.04 H Absolute Neuts (auto) 5.2 Absolute Nucleated RBC 0.000 Nucleated RBC % (auto) 0.0 APTT Sodium 141 Potassium 4.0 Chloride 105 Carbon Dioxide 29 Anion Gap 11 L BUN 21 H Creatinine 0.81 Estim Creat Clear Calc 69.0 Estimated GFR > 60 Random Glucose 96 Calcium 8.3 L Troponin I High Sens COVID-19 ([facility]IA DOLORES) COVID-19 Clin Com Progress Note: A&P Assessment and plan (1) Non-STEMI (non-ST elevated myocardial infarction): Status: Acute (2) PAF (paroxysmal atrial fibrillation): Status: Acute Assessment and Plan: Biomarker elevation suggesting ACS. Echo today. Transfer to [facility] for cardiac catheterization as previously arranged. Today, he is pain free. Can keep on current regime including Lovenox, ASA, Atorvastatin, nitrates. Also discussed with family- granddaughter at bedside. Fall Risk Details Current Medications: Current Medications Generic Name Dose Route Start Last Admin Trade Name Freq PRN Reason Stop Dose Admin Acetaminophen 650 mg 11/06/20 17:14 Acetaminophen 325 Mg Tablet PO Q6H PRN Pain, Mild (Pain Scale 1-3) Aspirin 81 mg 11/07/20 09:00 11/07/20 09:13 Aspirin 81 Mg Tab.Chew PO 81 mg DAILY TOMER Administration Atorvastatin Calcium 80 mg 11/07/20 21:00 Atorvastatin Calcium 80 Mg Tablet PO BEDTIME [facility] Docusate Sodium 100 mg 11/06/20 17:14 Docusate Sodium 100 Mg Capsule PO DAILY PRN Constipation Enoxaparin Sodium 60 mg 11/06/20 22:00 11/07/20 09:12 Enoxaparin Sodium 60 Mg/0.6 Ml Syringe 1 mg/kg (60 mg) 60 mg SUBCUT Administration Q12H [facility] Nitroglycerin 1 inch 11/06/20 14:00 11/07/20 09:13 Nitroglycerin 2 % Oint 1 Gm Packet TRANSDERMA Not Given RQ6H WHILE AWAKE [facility] Ondansetron HCl 4 mg 11/06/20 17:14 Ondansetron Hcl 4 Mg/2 Ml Vial IVPUSH Q8H PRN Nausea and Vomiting Sodium Chloride 3 ml 11/06/20 17:14 11/07/20 09:14 0.9 % Sodium Chloride Flush 3 Ml Syringe IVFLUSH 3 ml QSHIFT TOMER Administration Time Spent With Patient Time: Total time spent is greater than 50% in coordination of care (as documented) at patient's floor/unit and/or counseling patient: Time with patient: less than 15 minutes Procedures Date of Service Date of Service: 11/07/20
[2020-11-07 10:44] VITALS: BP 123/73; PULSE 53; RESP 16; TEMP 36.6; O2SAT 96
--- NOTE | 2020-11-07 11:04 | CA_ITS ---
Transthoracic Echocardiogram Patient (Last, First, Middle): Tasha Corral, Gender: Male Date of : 1950 Age: 70 Procedure Date: 11/07/2020 Procedure Type: Transthoracic Echocardiogram Location: [facility] Height: 162.56 cm Weight: 81.65 kg BSA: 1.87 m2 Heart Rate: bpm BP: 122 / 69 mmHg Digital Campaign Specialist: Referring MD: Herb Carrasco MD Symptoms: ACS Study Quality: Fair ECG Rhythm: Sinus Conclusions: - The left ventricular systolic function is normal. The visually estimated ejection fraction is between 60-65%. - Possible mild inferior wall hypokinesis. - No obvious valvular pathology seen on this study. Findings Procedure Information Contrast agent, definity, is being given per protocol without apparent complications. Left Ventricle Normal left ventricular cavity size. There is mildly increased left ventricular wall thickness. The left ventricular systolic function is normal. The visually estimated ejection fraction is between 60-65%. E/E prime ratio is between 8 and 15 consistent with indeterminate filling pressures. Evidence suggests grade I (mild) diastolic dysfunction. Possible mild inferior wall hypokinesis. Right Ventricle Normal right ventricular cavity size and systolic function. Atria The left atrium is mildly dilated. The right atrium is normal in size. Aortic Valve There is a normal trileaflet aortic valve. There is no aortic valve stenosis. There is trace (trivial) aortic valve regurgitation. Mitral Valve The mitral valve appears normal. There is trace mitral valve regurgitation. There is no mitral valve stenosis. Pulmonic Valve The pulmonic valve was not well visualized. There is trace pulmonic valve regurgitation. Tricuspid Valve Normal tricuspid valve structure. There is mild tricuspid valve regurgitation. The pulmonary artery systolic pressure is normal. Great Vessels The aortic annulus, sinuses of valsalva, and asc aorta are normal in size. Venous The inferior vena cava is normal in size and collapses greater than 50% with inspiration. Pericardium/Pleural There is no evidence of pericardial effusion. Prior Study Comparison No prior study available for comparison. Recommendations, Care & Conclusions No obvious valvular pathology seen on this study. Measurements 2D Linear Measurements IVSd: 1.16 0.6-0.9/0.6-1.0 cm LVIDd: 4.31 3.9-5.3/4.2-5.9 cm LVIDd Index: 2.30 2.4-3.2/2.2-3.1 cm/m2 LVIDs: 2.77 2.0-3.6 cm LVPWd: 1.16 0.7-1.1 cm Ao Root: 3.00 2.1-3.5 cm LA Diam: 4.10 2.7-3.8/3.0-4.0 cm LAIDs Index: 2.19 1.5-2.3 cm/m2 LV Mass: 219.83 67-162/88-224 g LV Mass Index: 117.55 43-95/49-115 g/m2 LVOT Diam: 2.20 3.0+(-)1.3 cm 2D Systolic Function EF 4C: 58.30 >55% EF 2C: 62.80 >55% EF BiP: 60.10 >55% Mitral Valve MV Pk E: 0.53 MV PK A: 0.81 MV Decel Time: 218.00 E/A: 0.70 E'Lateral: 4.35 E'Medial: 4.93 E/E' Med: 10.70 E/E' Lat: 12.20 PHT: 64.00 MVA PHT: 3.44 Decel Luce: 2.42 Aortic Valve AoV Pk Víctor: 1.13 AoV Mn Víctor: 0.73 AoV VTI: 0.26 AoV Pk Grad: 5.00 Aov Mn Grad: 2.00 GAL[place]A Cont.VTI: 3.41 LVOT LVOT Pk Víctor: 0.86 LVOT Mn Víctor: 0.54 LVOT VTI: 0.23 LVOT Pk Grad: 3.00 LVOT Mn Grad: 1.00 LVOT Diam: 2.20 LVOT Area: 3.80 Diastolic Function MV Pk E: 0.53 MV Pk A: 0.81 E/A: 0.70 E'Medial: 4.93 E/E' Med: 10.70 E' Laterial: 4.35 E/E' Lat: 12.20 Tricuspid Valve TR Pk Víctor: 1.76 TR Pk Grad: 12.00 RA Press: 3.00 RVSP: 15.00 Great Vessels Aorta Ao Root-2D: 3.00 2.0-3.7 cm Ao Asc: 3.60 2.1-3.4 cm Pulmonary Valve PV Pk Víctor: 1.06 Peak PV Grad: 4.00 Updated in Other Vendor System with Status of Final Randall Moran MD electronically signed on 11/07/2020 10:48:28 AM with status of Final
[2020-11-07 15:34] VITALS: BP 120/67; PULSE 61; RESP 17; TEMP 37.2; O2SAT 97
== END 2020-11-07 18:30 | disposition short-term general hospital (02) | DRG 282 ==
LOC: HO.ED 10:54 → HO.EDOVER 13:15 → HO.IMC 15:38
PROVIDERS: Physician Assistant Medical; Student in an Organized Health Care Education/Training Program; Admitting Provider Internal Medicine; Emergency Provider Emergency Medicine Emergency Medical Services; Visit Provider Internal Medicine
DX: I21.4 Non-ST elevation (NSTEMI) myocardial infarction (principal); I48.0 Paroxysmal atrial fibrillation; I10 Essential (primary) hypertension; K21.9 Gastro-esophageal reflux disease without esophagitis; E78.5 Hyperlipidemia, unspecified; Z20.822 Contact with and (suspected) exposure to COVID-19; Z87.891 Personal history of nicotine dependence; Z79.899 Other long term (current) drug therapy
CPT/HCPCS: 36415; 71045; 80048; 80053; 84484; 85025; 85610; 85730; 87635; 93005; 93306; 96372; 99285; J1650; Q9957

== ENCOUNTER 2022-09-21 17:40 | Emergency (ER) | payer MEDICARE, OTHER, SELFPAY ==
--- NOTE | ~2022-09-21 | XR_ITS ---
EXAMINATION: XR FOOT, RIGHT CLINICAL INFORMATION: Painful. COMPARISON: None TECHNIQUE: AP, lateral, and oblique views of the right foot. FINDINGS: No fracture. No dislocation. No focal bone lesion or abnormal periosteal reaction. There is marked joint narrowing of the first metatarsal phalangeal joint with flattening of the articular surface subchondral sclerosis and cystic changes and marginal bone spurs. Small plantar calcaneal spur. Small spur at the posterior calcaneus. XR/XR foot RT min 3V IMPRESSION: 1. No acute abnormality. 2. 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
[2022-09-21 17:42] VITALS: BP 111/87; PULSE 93; RESP 18; TEMP 36.9; O2SAT 97; BMI 30.9
--- NOTE | 2022-09-21 19:39 | ED.LOWEXIN ---
HPI - Extremity Injury (Lower) General Chief Complaint: Extremity Injury, Lower Stated Complaint: R heel pain Time Seen by Provider: 09/21/22 19:29 Source: patient Mode of arrival: ambulatory Limitations: no limitations History of Present Illness HPI Narrative: 72-year-old male with a history of AFib, coronary artery disease presents with right heel pain for several weeks. Patient tells me he was seen in [place] and diagnosed with a heel spur. Patient is taking diclofenac, tramadol p.r.n. with continued pain. Patient reports pain is only when he bears weight. Patient reports today while caring heavy block he felt increased pain in his right heel which made him concerned and prompted the ER visit. Patient denies any numbness, tingling, weakness, swelling or redness of the extremity. Patient has an appointment in October to see a vortex operator Related Data Home Medications Medication Instructions Recorded Confirmed aspirin 81 mg tablet 81 mg PO DAILY 09/22/20 lisinopril 2.5 mg tablet 2.5 mg PO DAILY 09/22/20 metoprolol succinate 25 mg 25 mg PO DAILY 09/22/20 tablet,extended release 24 hr omega 2-arr-wtt-fish oil 100 1 cap PO DAILY 09/22/20 mg-160 mg-1,000 mg capsule (Fish Oil) omega-3 fatty acids 500 mg PO DAILY 09/22/20 rivaroxaban 20 mg tablet (Xarelto) 20 mg PO QPM 09/22/20 simvastatin 20 mg tablet 20 mg PO QPM 09/22/20 omega-3 fatty acids-vitamin E 1 cap PO DAILY 09/27/20 11/06/20 1,000 mg capsule Previous Rx's Medication Instructions Recorded aspirin 81 mg chewable tablet 81 mg PO DAILY #30 tabs 11/07/20 atorvastatin 80 mg tablet 80 mg PO BEDTIME #30 tabs 11/07/20 enoxaparin 60 mg/0.6 mL 60 mg (0.6 mL) subcut Q12H #60 mL 11/07/20 subcutaneous syringe Allergies Allergy/AdvReac Type Severity Reaction Status Date / Time No Known Allergies Allergy Verified 11/13/20 07:57 Review of Systems Review of Systems: Yes all other systems are reviewed and are negative Constitutional: Constitutional: Reports no additional constitutional complaints, Denies body ache(s), Denies chills, Denies fever(s), Denies headache(s) and Denies weakness Eyes: Eyes: Reports no additional eye complaints and Denies change in vision ENT: Reports system reviewed and no additional complaints, except as documented, Denies dizziness, Denies headache(s), Denies nasal congestion, Denies nasal discharge and Denies neck pain Cardiovascular: Cardiovascular: Reports no additional cardiovascular complaints, Denies chest pain, Denies leg edema and Denies dyspnea Respiratory: Respiratory: Reports no additional respiratory complaints, Denies cough and Denies dyspnea Gastrointestinal: Gastrointestinal: Reports no additional gastrointestinal complaints, Denies abdominal pain, Denies diarrhea, Denies nausea and Denies vomiting Genitourinary: Genitourinary: Denies urinary incontinence Musculoskeletal: Musculoskeletal: Reports no additional musculoskeletal complaints, Denies back pain, Reports arthralgias, Denies joint swelling, Denies neck pain, Denies numbness and Denies tingling Integumentary/Breasts: Skin/Breast: Reports system reviewed and no additional complaints, except as docu and Denies rash Neurologic: Reports system reviewed and no additional complaints, except as documented, Denies Abnormal speech present, Denies dizziness, Denies headache(s), Denies numbness, Denies tingling and Denies weakness PMFSH Past Medical History Attestation statement: The following information was validated with the patient. Source: old records reviewed and nursing notes reviewed Medical History Atrial fibrillation Bradycardia Elevated cholesterol HTN (hypertension) HTN (hypertension) Hypercholesteremia PAF (paroxysmal atrial fibrillation) Surgical History H/O right inguinal hernia repair History of colonoscopy History of ear surgery History of inguinal hernia repair History of placement of ear tubes History of shoulder surgery Hx of colonoscopy Family History Family History Other CAD (coronary artery disease) Social History Social History Housing: House Alcohol intake: current Alcohol intake frequency: a few times a month Alcohol type: beer Advance Directives: No Advance Directives Information Provided: No service: No Current occupational status: retired Physical Exam Vital Signs: Vital Signs: Last Vital Signs Temp 98.4 F 09/21/22 17:42 Pulse 93 09/21/22 17:42 Resp 18 09/21/22 17:42 BP 111/87 09/21/22 17:42 Pulse Ox 97 09/21/22 17:42 O2 Del Method 09/21/22 17:42 BMI result Body Mass Index 30.9 Const: General: cooperative, healthy appearing, comfortable and no acute distress Orientation/consciousness: patient oriented x3 Limitations: no limitations HEENT: Head: Yes normal to inspection Ears: hearing grossly normal bilaterally General nose exam: Normal external nose present Face and sinus: Yes normal facial exam Mouth: Normal oral and palatal mucosa present Throat: Yes posterior oropharynx normal Eyes: General: appearance normal, both eyes and all related structures Pupils: Equal, round and reactive pupils present Neck: Neck: Yes normal visual inspection Chest: Chest palpation & inspection: normal inspection of the chest Resp: Effort & Inspection: normal respiratory effort Auscultation: clear to auscultation bilaterally Cardio: Rate: regular rate Rhythm: regular rhythm Peripheral pulses: Peripheral pulses 2+ throughout GI: Inspection: Yes normal to inspection Palpation (GI): Soft to palpation and nontender Auscultation: normal bowel sounds Back/Spine/Pelvis: Thoracic/Lumbar Spine: thoracic and lumbar spine normal to inspection Skin: General skin exam: no rashes or lesions noted Neuro: General: patient oriented x3, no focal motor deficits and normal sensation to monofilament Cranial nerves: Yes Equal, round and reactive pupils present Cognition (Neuro): normal cognition Speech: No Abnormal speech present Gait exam (Neuro): Normal gait present Motor exam (neuro): 5/5 motor strength present throughout Extrem: Other: Patient with tenderness in all palpation over the right heel with no obvious swelling, redness or deformity. Palpable dorsalis pedis and posterior tibial pulses. Full range of motion of the foot and ankle with no difficulty General: Yes normal to inspection Course Course Course Narrative: Pain is likely secondary to heel spur. We discussed supportive heel socks and shoe inserts at home that patient may try patient has diclofenac and tramadol for pain. Patient reports he takes these intermittently as most of his pain is only with walking and he does not feel like he needs it. He does have an upcoming appointment Podiatry. Recommended he keep this appointment. Medical Decision Making Medical Decision Making MDM Narrative: 72-year-old male with a known right calcaneal heel spur presents with worsening pain in the right heel after lifting some heavy objects today. Will obtain x-rays Differential Diagnosis Differential Diagnoses: The differential diagnosis associated with the presentation includes Fracture, contusion, heel spur Independent Interpretation I performed an independent interpretation of an: Plain X-Ray (I independently reviewed the x-ray which shows right calcium heel spur and arthritic changes) Radiology Impression Discussion of test interpretation with radiology: I have reviewed the radiologist's reading. Radiologist Impression: [address] [address] XRay Report Signed Patient: Tasha Corral MR#: [id number] : 1950 Acct:[id number] Age/Sex: 72 / M ADM Date: 09/21/22 Loc: .ED Attending Dr: Ordering Physician: Generic ED Physician Date of Service: 09/21/22 Procedure(s): XR foot RT min 3V Accession Number(s): [id number] cc: Generic ED Physician~ EXAMINATION: XR FOOT, RIGHT CLINICAL INFORMATION: Painful.? COMPARISON: None? TECHNIQUE: AP, lateral, and oblique views of the right foot. FINDINGS: No fracture. No dislocation. No focal bone lesion or abnormal periosteal reaction. There is marked joint narrowing of the first metatarsal phalangeal joint with flattening of the articular surface subchondral sclerosis and cystic changes and marginal bone spurs. Small plantar calcaneal spur. Small spur at the posterior calcaneus. XR/XR foot RT min 3V IMPRESSION: 1.? No acute abnormality. 2.? 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 ? Independent Historian Clinical information obtained from an independent historian. History obtained from or confirmed by: Other (Family member) Discharge Plan Discharge Clinical Impression: Calcaneal spur Patient Disposition: Home, Self-Care Instructions: Heel Spur (ED) Additional Instructions: Your x-ray shows a heel spur. Continue with plan to follow-up with the Podiatry Prescriptions: No Action simvastatin 20 mg Tablet 20 mg PO QPM aspirin 81 mg Tablet 81 mg PO DAILY metoprolol succinate 25 mg Tablet Extended Release 24 Hr 25 mg PO DAILY lisinopril 2.5 mg Tablet 2.5 mg PO DAILY [place] 3 Capsule 500 mg PO DAILY Fish Oil 100-160-1,000 mg Capsule 1 cap PO DAILY Xarelto 20 mg Tablet 20 mg PO QPM Rx Instructions: patient was instructed by MD office to stop on Saturday omega-3 fatty acids-vitamin E 1,000 mg Capsule 1 cap PO DAILY atorvastatin 80 mg Tablet 80 mg PO BEDTIME Qty: 30 0RF aspirin 81 mg Tablet,Chewable 81 mg PO DAILY Qty: 30 0RF enoxaparin 60 mg/0.6 mL Syringe 60 mg subcut Q12H Qty: 60 0RF Referrals: Krunal Chapin [Physician] - 1 week Interventions: ED Discharge Assessment Last Done: 09/21/22 19:44
== END 2022-09-21 20:00 | disposition home or self-care (01) ==
LOC: HO.ED 19:45
PROVIDERS: Emergency Provider Emergency Medicine; PCP Internal Medicine Geriatric Medicine
DX: M77.31 Calcaneal spur, right foot (principal); M79.671 Pain in right foot; I48.91 Unspecified atrial fibrillation; Z79.01 Long term (current) use of anticoagulants; Z79.899 Other long term (current) drug therapy
CPT/HCPCS: 73630; 99282; 99283

== ENCOUNTER 2023-12-20 08:23 | Outpatient (REF) | payer MEDICARE, SELFPAY ==
[2023-12-20 11:41] LABS: MANUAL DIFF FLAG NO
[2023-12-20 11:52] LABS: Basophils Absolute Auto 0.1 X10*3/uL (0.0-0.2); Basophils Percent Auto 0.8 % (0-2); Eosinophils Absolute Auto 1.3 X10*3/uL (0.0-0.4); Eosinophils Percent Auto 12.7 % (0-4); Hemoglobin 16.3 g/dl (14.0-18.0); Imm Gran Abs Auto 0.03 X10*3/uL (0.00-0.03); Imm Gran Pct Auto 0.3 % (0.0-0.4); Lymphocytes Absolute Auto 2.9 X10*3/uL (1.2-4.9); Lymphocytes Percent Auto 29.4 % (20-40); Mean Corpuscular Hemoglobin 31.8 pg (27.0-33.0); Mean Corpuscular Volume 93.6 fL (80.0-98.0); Mean Platelet Volume 12.2 fL (9.4-12.4); Monocytes Percent Auto 10.2 % (2-11); Neutrophils Absolute Auto 4.6 x10*3/uL (2.0-8.3); Neutrophils Percent Auto 46.6 % (45-73); Platelet Count 204 X10*3/uL (160-400); Red Blood Count 5.13 X10*6/uL (4.60-5.80); Red Cell Distribution Width 14.2 % (11.0-16.0); White Blood Count 9.9 X10*3/uL (4.8-10.8)
[2023-12-20 13:33] LABS: Alanine Aminotransferase 25 U/L (0-40); Albumin Level 4.1 g/dL (3.5-5.0); Alkaline Phosphatase 92 U/L (39-117); Anion Gap 12 (12-20); Aspartate Amino Transferase 18 U/L (5-37); Bilirubin Total 0.7 mg/dL (0.0-1.0); Blood Urea Nitrogen 12 mg/dL (9-16); Calcium 8.9 mg/dL (8.4-10.2); Carbon Dioxide 28 mmol/L (22-29); Chloride 107 mmol/L (96-108); Cholesterol 155 mg/dL (<200); Estimated Glomerular Filt Rate > 60; Glucose Random 99 mg/dL (60-115); HDL Cholesterol 55 mg/dL (>40); LDL Cholesterol Calculated 82 mg/dL (<100); Sodium 143 mmol/L (135-145); Total Protein 7.2 g/dL (6.5-8.0); Triglycerides 90 mg/dL (<150)
== END 2023-12-20 08:24 | disposition home or self-care (01) ==
LOC: HO.HHCL 08:23
PROVIDERS: Visit Provider Internal Medicine Geriatric Medicine
DX: I10 Essential (primary) hypertension (principal); I21.9 Acute myocardial infarction, unspecified
CPT/HCPCS: 36415; 80053; 80061; 85025

== ENCOUNTER 2024-04-22 11:41 | Outpatient (REF) | payer MEDICARE, SELFPAY ==
[2024-04-23 05:24] LABS: ~Hepatitis C Antibody Nonreactive (Nonreactive)
== END 2024-04-22 11:42 | disposition home or self-care (01) ==
LOC: HO.HHCL 11:41
PROVIDERS: Visit Provider Internal Medicine Geriatric Medicine
DX: Z11.59 Encounter for screening for other viral diseases (principal)
CPT/HCPCS: 36415; 86803

== ENCOUNTER 2024-12-15 08:43 | Outpatient (REF) | payer MEDICARE, OTHER, SELFPAY ==
--- OUTSIDE RECORDS SUMMARY | 2024-12-15 09:12 | XMS_ITS | Patient Health Record ---
Author Organization [facility] Charley sade Carrington Address [address] [place] [address] Care Team Providers Care Plastic Battery Assembler Name Role Phone Name Noman ENRIQUEZ Primary Care Provider Ever Devi Unavailable [phone] Allergies No Known Allergies Reason For Referral No Information Medications Medication SIG (Take, Route, Frequency, Duration) Notes Start Date End Date Status Carvedilol 12.5 MG 1 tablet with food O rally Twice a day for 30 day(s) Active Xarelto 20 MG 1 tablet with food O rally Once a day for 30 day(s) Active amLODIPine Besylate 5 MG 1 tablet Orally Once a day for 30 day(s) Active Atorvastatin Calcium 80 MG 1 tablet Oral ly Once a day for 30 day(s) Active Night Splint AFO - L1930 as directed Active Multivitamin Active Clopidogrel Bisulfate 75 MG 1 tablet Ora lly Once a day for 30 day(s) Active Custom Orthotics as directed A ctive Social History Tobacco Use: Social History Observation Description Date Details (start date - stop date) Never Smoker NA - NA Tobacco Use/Smoking Question Answer Notes Are you a: nonsmoker Alcohol Screen Question Answer Notes Did you have a drink contain ing alcohol in the past year? Yes How often did you have a dri nk containing alcohol in the past year? Monthly or less (1 point) Points 1 Interpretation Negative Tobacco use other than smoking: Question Answer Notes Are you an other tobacco user? No Problems Problem Type SNOMED Code ICD Code Onset Dates Problem Status W/U Status Risk Notes Problem Acquired hallux rigidus (8849389) Hallux rigidus, right foot (M20.21) Active confirmed Plan Of Treatment Pending Test Test Name Order Date ,[id number] TENDON SHEATH/LIGAMENT 0 10/19/2022,[id number] TENDON SHEATH/LIGAMENT 0 01/29/2023 X ray : Ankle, right 3V 10/19/2022 Insurance Providers Payer Name Payer Address Payer Phone Subscriber Number Group Number Insured Name Patient Relationship to Insured Coverage Start Date Coverage End Date [facility] [employer] Claims [address] [place] [id number] Tasha Macdonald Self - patient is the insured Medical (General) History Medical History History ICD Code CAD (Cholesterol) High blood pressure Surgical History Surgery Date(Month/Year) Hospitalization History Reason Date(Month/Year) [facility] [place]- foot pain, xray
--- OUTSIDE RECORDS SUMMARY | 2024-12-15 09:12 | XMS_ITS | Data Portability ---
Author Organization [facility] [place] [place] [facility] Address [address] [place] [id number] Care Team Providers Care Skating Rink Manager Name Role Phone [facility] Referring Provider [facility] Referring Provider Assessment Encounter Date Assessment Date Assessment LastModified by Organization Details LastModified Time 10/23/2023 10/23/2023 I provided real -time medical direction via phone for this encounter, and was available for additional phone based assistance as needed. I have reviewed and agree with the Assessment and Plan as documented by the Regulatory Services Consultant. Patient given the opportunity to ask questions. As per above, 3 days of URI symptoms. Denies F/C. Good po intake. VSS and non-toxic per supervisor whipped topping on the scene. Tested + yesterday and today. Declines Paxlovid after discussion about risks/benefits given such a mild case. We discussed the diagnostic uncertainty of home visits and the risk associated with this. In this case, the patient and I felt this to be an acceptable and reasonable amount of risk given the benefit of avoiding an ED visit. We discussed the need to seek care urgently/emerge ntly in the setting of any new or worsening serious symptoms, particularly fever chills, difficulty breathing [email or web address] [id number] Not available 10/23/2023 11:52:41 Plan of Treatment Reminders Order Date Submit Date Provider Last Modified By Organization Details Last Modified Time Details Appointments None recorded. Lab rapid SARS CoV 2 Ag, QL IA, respiratory specimen 2023 024 [email or web address] [facility], [address] [place] [address], [id number] 11:52:42 Referral None recorded. Procedures None recorded. Surgeries None recorded. Imaging None recorded. Medication Orders None recorded. Patient TargetsNo targets recorded. Patient InstructionsNo instructions recorded. Reason for Referral None Reported. Results Created Date Observation Date Name Description Value Unit Range Abnormal Flag Note LastModifiedBy Organization Detail LastModifiedTime 10/23/19 24 10/23/2023 rapid SARS CoV 2 Ag, QL IA, respi rator y speci men rapid SARS CoV 2 Ag, QL IA, respiratory specimen positi ve Not Available Main [address], [phone] 10/23/2023 11:42:31 Result Notes None recorded. Medical Equipment None Reported. Medications Name Sig Start Date Stop Date Status Note LastModified by Organization Details LastModified Time multivitamin tablet TAKE 1 TABLET BY MOUTH EVERY MORNING active Not Available Not Available No t Available atorvastatin 80 mg tablet TAKE 1 TABLET BY MOUTH EVERY DAY active Not Available Not Available No t Available clopidogrel 75 mg tablet TAKE 1 TABLET BY MOUTH EVERY DAY active Not Available Not Available No t Available amlodipine 5 mg tablet TAKE 1 TABLET BY MOUTH EVERY DAY IN THE MORNING active Not Available Not Available No t Available carvedilol 3.125 mg tablet TAKE 1 TABLET BY MOUTH TWICE DAILY WITH FOOD active Not Available Not Available No t Available diclofenac potassium 50 mg tablet TAKE 1 TABLET BY MOUTH TWICE DAILY active Not Available Not Available No t Available Ventolin HFA 90 mcg/actuation aerosol inhaler INHALE 2 PUFFS BY MOUTH EVERY 4 TO 6 HOURS NEEDED active Not Available Not Available No t Available Xarelto 20 mg tablet TAKE 1 TABLET BY MOUTH EVERY EVENING WITH DINNER active Not Available Not Available No t Available Vitals Date Recorded Body weight Respiratory rate Body temperature Body height Oxygen saturation Oxygen saturation in Arterial blood by Pulse oximetry Heart rate Systolic blood pressure Diastolic blood pressure Provider Name and Address Organization Details Last Updated DateTime 4 78795.8 g 14 /min 98.4 [degF] 157.48 cm 98 % 98 % 88 /min 124 mm[Hg] 80 mm[Hg] Not Available [facility] - production 4 11:41:39 Social History None recorded. Functional Status None recorded. Mental Status None recorded. Family History Nothing Reported. Medical History No medical history recorded. Gynecological HistoryNo gynecological history recorded. Obstetrics History GPAL:G 0 P 0 0 0 0 Past Encounters Encounter ID Performer Location Encounter Start Date Encounter Closed Date Diagnosis/Indication Diagnosis SNOMED-CT Code Diagnosis ICD10 Code Diagnosis Note Marva Cadena MD Main - [address] [phone] 10/23/2023 11:41:32 10/23/2023 18:20:31 COVID-19 [id number] U07.1 Health Concerns Section Related Observation LastModified by Organization Detai ls LastModified Time None Recorded Concern Status LastModified by Organization Details LastModified Time None Recorded Advance Directives Directive None Recorded Payers Encounter Date Sequence Insurance Name Policy Number Policy Barber Covered Member ID Barber Member ID Guarantor Name 10/23/2023 1 [facility] - DOS ON OR AFTER 2022 - DUAL ELIGIBLE - GROUP HOME OPTIONS AND ONE CARE (MEDICARE REPLACEMENT/ADV ANTAGE - HMO) Tasha Ellis Corral [id number] Tasha Corral Notes Date Note Type Note Provider Name and Address Organization Details Recorded Time 10/23/2023 text/html HPI: PMH: Afib, Obesity Call to Tasha Corral, reports started having body aches, cough and ST on Saturday. Tested with home kit yesterday and positive for COVID-19. No nausea vomiting or diarrhea. Pt has had fever. Pt meets criteria for Paxlovid. No telehealth in office today. Agrees to [employer] for eval of lung sounds and possible Rx for paxlovid. CDC guidelines for isolation reviewed. Reviewed home care advise, ER precautions and reasons to call back. .................. .................. .................. .................. .................. .................. .................. ............... CRC Nurse Triage Notes (Missy Burleson): Comments: CRC RN DID NOT NEED FURTHER INFO Marva Cadena MD [address] [facility],[address], [place], [address], [facility] - [facility] 10/23/2023 11:53:09 OBGyn Episode No OBEpisode recorded.
--- OUTSIDE RECORDS SUMMARY | 2024-12-15 09:12 | XMS_ITS | Encounter Summary ---
Author Organization [employer] [facility] Address [address] [place] [address] [address] [place] [address] Care Team Providers Care Draw Frame Operator Name Role Phone Name, Noman ENRIQUEZ Primary Care Provider [phone] Reason for Visit * Reason Comments Med Refill Encounter Details Date Type Department Care Team (Late st Contact Info) Description 11/26/2022 Refill [facility] [address] [place] [address] [phone] Jeane Flores FNP [address] [place] [address] Dept [place] [address] Right foot pain Social History Tobacco Use Types Packs/Day Years Used Date Smoking Tobacco: Never Smokeless Tobacco: Never Sex and Gender Information Value Date Recorded Sex Assigned at Male 07/09/2022 10:17 AM EDT Legal Sex Male 10:17 AM EDT Gender Identity Male 07/09/2022 10:17 AM EDT Sexual Orientation Choose not to disclose 2021 10:17 AM EDT documented as of this encounter Miscellaneous Notes * Telephone Encounter - Noman Tellez MD - 11/26/2022 12:37 PM EDT He in Xarelto, concomitant use of NSAIDs will increase risk of bleeding documented in this encounter Plan of Treatment Upcoming Encounters Date Type Department Care Team (Late st Contact Info) Description 12/30/2024 10:30 AM EDT Office Visit [facility] [address] [place] [address] [phone] Noman Tellez MD [address] [place] [address] documented as of this encounter Visit Diagnoses Diagnosis Right foot pain Pain in soft tissues of limb documented in this encounter Care Teams Draw Frame Operator Relationship Specialty Start Date End Date Name, MD Noman [address] [place] [address] PCP - General Family Medicine 08/13/19 documented as of this encounter
--- OUTSIDE RECORDS SUMMARY | 2024-12-15 09:12 | XMS_ITS | Clinical Summary ---
Author Organization [facility] Address [address] [facility] 7[address] [place] [address] Care Team Providers Care Singe Machine Operator Name Role Phone Name, Noman ENRIQUEZ Primary Care Provider [phone] Allergies No known active allergies Medications Ventolin HFA 108 (90 Base) MCG/ACT inhaler INHALE 2 PUFFS BY MOUTH EVERY 4 TO 6 HOURS NEEDED 18 g 2 4 Active Multiple Vitamin (Multivitamin) tablet TAKE 1 TABLET BY MOUTH EVERY MORNING 90 tablet 3 4 Active clopidogrel (Plavix) 75 MG tabletIndication s:Atherosclerosi s of coronary artery of [place] heart, unspecified vessel or lesion type, unspecified whether angina present TAKE 1 TABLET BY MOUTH EVERY DAY 30 tablet 5 4 Active atorvastatin (Lipitor) 80 MG tabletIndication s:Atherosclerosi s of coronary artery of [place] heart, unspecified vessel or lesion type, unspecified whether angina present TAKE 1 TABLET BY MOUTH EVERY DAY 30 tablet 5 4 Active Xarelto 20 MG tablet TAKE 1 TABLET BY MOUTH EVERY EVENING WITH DINNER 90 tablet 3 5 Active carvedilol (Coreg) 3.125 MG tabletIndication s:Hypertension, unspecified type TAKE 1 TABLET BY MOUTH TWICE DAILY WITH FOOD 180 tablet 1 5 Active amLODIPine (Norvasc) 5 MG tabletIndication s:Hypertension, unspecified type TAKE 1 TABLET BY MOUTH EVERY MORNING 90 tablet 1 5 Active tadalafil (Cialis) 20 MG tablet Take 1 tablet (20 mg) by mouth if needed each day for erectile dysfunction. 10 tablet 5 Active sertraline (Zoloft) 25 MG tablet Take 1 tablet (25 mg) by mouth Once per day. 30 tablet 2 5 10/16/19 26 Active Active Problems Problem Noted Date Diagnosed Date Acquired hallux rigidus 08/14/2024 Hospital discharge follow-up 08/14/2024 Assessment & Plan (08/14/2024 9:44 AM EST): Neuro Exam showed no abnormalities or deficits, Head impulse test negative No indications for imaging today; In ED MRI brain: non acute. CT of head stable. CT angio of head stable. Labs normal and no orthostatic hypotension based on hospital BP readings. Offered physical therapy referral today to help with balance and coordination-pt declined at this time. Educated patient on fall risk and encouraged patient to rise slowly in the morning and sit in bed for 5 minutes before standing. F/u with PCP in october Class 1 obesity 07/30/2024 Paroxysmal atrial fibrillation 09/05/2022 Myocardial infarction 09/05/2022 Coronary atherosclerosis 09/05/2022 Obesity (BMI 30-39.9) 10/21/2018 Erectile dysfunction 02/18/2018 Blurring of visual image 06/01/2015 Perforation of tympanic membrane 10/23/2013 Tubular adenoma of colon 06/23/2012 Hyperlipidemia 06/23/2012 Essential hypertension 03/13/2012 Resolved Problems Problem Noted Date Diagnosed Date Resolved Date Overweight 05/22/2018 04/22/2024 Encounters Date Type Department Care Team Description 10/16/2024 9:15 AM EST Office Visit [facility] [address] [place] [address] Noman Tellez MD Depression, unspecified depression type (Primary Dx); Elevated blood pressure reading; Paroxysmal atrial fibrillation ([facility]/HCC); Mixed hyperlipidemia 10/15/2024 Telephone [facility] [address] [place], [place] [phone] Noman Tellez MD Chart Prep 10/08/2024 Refill [facility] [address] [place] [address] Noman Tellez MD Hypertension, unspecified type from Last 3 Months Immunizations Name Administration Dates Next Due Influenza High-dose Quadriva lent Preservative Free 07/02/2023,05/12/2020 Influenza Quadrivalent Adjuvanted 07/07/2021 Influenza injectable quadriv alent IIV4 with preservative 06/01/2015 Influenza, High Dose Seasona l, Preservative Free 07/20/2024,06/26/2019,06/26/2018,05/11,06/29/2016 Influenza, IIV3, injectable 07/20/2024, 4,06/05/2011 Influenza, Split (incl. alicia fied surface antigen) 07/31/2013,06/24/2012 [place] SARS-CoV-2 Vaccination 11/23/2020 Pneumococcal Conjugate PCV 13 11/10/2020 Pneumococcal Conjugate PCV 20 07/02/2023 Pneumococcal Polysaccharide PPSV23 07/29/2006 TD (adult), 2 Lf tetanus tox oid, preservative free, adsorbed 07/29/2006 Tdap 10/05/2016 Zoster, live 10/25/2016 Social History Tobacco Use Types Packs/Day Years Used Date Smoking Tobacco: Former Cigarettes Smokeless Tobacco: Never Tobacco Cessation:Counseling Given: Not Answered Alcohol Use Standard Drinks/Week Comments Never 0 (1 standard drink = 0.6 oz pur e alcohol) Depression Answer Date Recorded Patient Health Questionnaire-9 Score 0 01/03/2024 Patient Health Questionnaire-9 Score 0 01/03/2024 Last PHQ-9: Questionnaire Data Not on file 0 01/03/2024 Housing Stability Answer Date Recorded What is your housing situation today? I have jesús belle 01/03/[address] you li ve. Do you have problems with any of the following? None of the above 01/03/2024 Food Insecurity Answer Date Recorded Within the past 12 months, y ou worried that your food would run out before you got money to buy more: Never True 01/03/2024 Within the past 12 months,th e food you bought just didn't last and you didn't have enough money to get more: Never True Transportation Answer Date Recorded In the past 12 months, has l ack of transportation kept you from medical appts, meetings, work or from getting things needed for daily living? No 01/03/2024 Utilities Answer Date Recorded In the past 12 months, has t he electric, gas, oil or water company threatened to shut off services in your home? No 01/03/2024 Depression Answer Date Recorded Patient Health Questionnaire-2 Score 0 01/03/2024 Sex and Gender Information Value Date Recorded Sex Assigned at Male 07/09/2022 10:17 AM EDT Legal Sex Male 10:17 AM EDT Gender Identity Male 07/09/2022 10:17 AM EDT Sexual Orientation Choose not to disclose 2021 10:17 AM EDT Last Filed Vital Signs Vital Sign Reading Time Taken Comments Blood Pressure 122/95 10/16/2024 9:13 AM EST Pulse 88 10/16/2024 9:13 AM EST Temperature 36.7 ??C (98.1 ??F) 10/16/2024 9:13 AM ES T Respiratory Rate 22 10/16/2024 9:13 AM EST Oxygen Saturation 98% 10/16/2024 9:13 AM EST Inhaled Oxygen Concentration - - Weight 83.9 kg (185 lb) 10/16/2024 9:13 AM EST Height 162.6 cm (5' 4 ) 10/16/2024 9:13 AM EST Body Mass Index 31.76 10/16/2024 9:13 AM EST Plan of Treatment Upcoming Encounters Date Type Department Care Team (Late st Contact Info) Description 12/30/2024 10:30 AM EDT Office Visit [facility] [address] [place] [phone] Name, MD Noman [address] [place] [address] Health Maintenance Due Date Last Done Comments Dental Oral Exam 1948 Dental Prophylaxis 1948 Dental X-Ray: Full Mouth 1948 RSV Patients and Patients Aged 60 years or older (1 - 1-dose 75+ series) 02/01/2023 Depression Screening 01/02/2025 01/03/2024, 01/03/20 SDOH Screening 01/02/2025 01/03/2024 Alcohol/Substance Use Screening 04/22/2025 04/22/2024 Dental X-Ray: Bitewings 07/31/2025 07/30/2024 COVID-19 Vaccine ( season) 2025 07/14/2021, 11/23/2020 Postponed from 05/10/2024 (Patient Refused) Zoster Vaccines (2 of 3) 08/14/2025 10/25/2016 Pos tponed from 12/20/2016 (Patient Refused) Tobacco Screening 10/16/2025 10/16/2024 DTaP/Tdap/Td Vaccines (2 - Td or Tdap) 10/05/2026 10/05/2016, 07/29/2006 Lipid Panel 12/19/2028 12/20/2023, 12/09, 04/02/2022, Additional history exists Colonoscopy Discontinued 09/28/2020 Colorectal Cancer Screening Discontinued Pneumococcal Vaccine: 50+ Years Completed 07/02/2023, 11/10/2020, 07/29/2006 Hepatitis C Screening Completed 04/22/2024 Influenza Vaccine Completed 07/20/2024, , 07/02/2023, Additional history exists CT Colonography Discontinued FIT DNA/Cologuard Discontinued FIT Discontinued FOBT Discontinued HIB Vaccines Aged Out No longer eligi ble based on patient's age to complete this topic HPV Vaccines Aged Out No longer eligi ble based on patient's age to complete this topic Hepatitis A Vaccines Aged Out No long er eligible based on patient's age to complete this topic Hepatitis B Vaccines Aged Out No long er eligible based on patient's age to complete this topic IPV Vaccines Aged Out No longer eligi ble based on patient's age to complete this topic Meningococcal Vaccine Aged Out No meka osmar eligible based on patient's age to complete this topic RSV under 20 months Aged Out No longe r eligible based on patient's age to complete this topic Rotavirus Vaccines Aged Out No longer eligible based on patient's age to complete this topic Sigmoidoscopy Discontinued Procedures Procedure Name Priority Date/Time Associated Diagnosis Comments BITEWING - SINGLE RADIOGRAPHIC IMAGE Routine 07/30/2024 9:00 AM EST Vertical fracture of root of tooth HEPATITIS C AB W/REFL TO HCV RNA, QN, PCR Routine 04/22/2024 11:45 AM EDT Need for hepatitis C screening test LIPID PANEL, STANDARD Routine 12/20/2023 8:25 AM EDT Essential hypertension HM COLONOSCOPY Routine 09/28/2020 11:57 AM EST from Last 3 Months or Most Recently Relevant to Health Maintenance Results * Hepatitis C Antibody with Reflex to HCV, RNA, Quantitative, Real-Time PCR (04/22/2024 11:45 AM EDT) Hepatitis C Antibody Nonreactive Nonreactive [facility] Comment:Antibodies to HCV no t detected; does not exclude early acuteHCV infection. Blood Venous blood specimen / Unknown 04/22/2024 11:45 AM EDT 04/22/2024 1:17 PM EDT us Noman Tellez MD LAB BLOOD ORDERABLES Final Resul t [facility] [address] [place] [phone] * Lipid Panel, Standard (12/20/2023 8:25 AM EDT) Triglycerides 90 <150 mg/dL [facility] Comment:Desirable Triglyceri de: less than 150 mg/dLBorderline High Triglyceride 150-199 mg/dLHigh Triglyceride: 200-499 mg/dLVery High Triglyceride: greater than or equal to 5OO mg/dL Cholesterol 155 <200 mg/dL [facility] Comment:Desirable Cholestero l: less than 200 mg/dLBorderline High Cholesterol: 200-239 mg/dLHigh Cholesterol: greater than 239 mg/dL LDL Cholesterol Calculated 82 <100 mg/dL [facility] Comment:Desirable LDL: less than 100 mg/dLNear Optimal/Above Optimal LDL: 110- 129 mg/dLBorderline High LDL: 130-159 mg/dLHigh LDL: 160-189 mg/dLVery High LDL: greater than or equal to 190 mg/dL HDL Cholesterol 55 >40 mg/dL [facility] Comment:Desirable HDL: great er than 40 mg/dL Note: This HDL assay may give artificially low results in patients with liver disease. Blood Venous blood specimen / Unknown 12/20/2023 8:25 AM EDT 12/20/2023 11:29 AM EDT us Noman Name LAB BLOOD ORDERABLES Final Resul t [facility] [address] [place] [address] [phone] * Hm Colonoscopy (09/28/2020 11:57 AM EST) Colonoscopy Normal Normal Narrative Marina So - 09/28/2020 11:57 AM EST Recommended 5 year follow up us Historical Provider HEALTH MAINTENANCE Final Result from Last 3 Months or Most Recently Relevant to Health Maintenance Insurance [facility] [employer] O DENTAL - HSN FULL (MEDICAID) Care Teams Singe Machine Operator Relationship Specialty Start Date End Date Name, MD Noman [address] [place] [phone] PCP - General Family Medicine 08/13/19
--- OUTSIDE RECORDS SUMMARY | 2024-12-15 09:12 | XMS_ITS | Patient Health Record ---
Author Organization [facility] Address [address] [place] [address] Care Team Providers Care Nuclear Medicine Tech Name Role Phone Name Noman ENRIQUEZ Primary Care Provider Zoran Beyer Unavailable [phone] Reason For Referral No Information Medications Medication SIG (Take, Route, Frequency, Duration) Notes Start Date End Date Status Metoprolol Succinate ER 25 MG TAKE 1 TABLET BY MOUTH EVERY DAY Oral for 30 Active Xarelto 20 MG TAKE 1 TABLET BY AKUA TH EVERY DAY WITH DINNER Oral for 60 Active Simvastatin 20 MG 1 tablet in the even ing Orally Once a day Active Immunizations Vaccine Route Administration Date Status Comme nts Flu vaccine no Preserv 3 and > Unknown 08/21/2016 Admin istered Influenza Unknown 05/18/2020 Administered Social History Tobacco Use: Social History Observation Description Date Details (start date - stop date) Former Smoker NA - NA Tobacco Use/Smoking Question Answer Notes Patient is a former smoker How long has it been since you last smoked? > 10 years Alcohol Screen Question Answer Notes Did you have a drink contain ing alcohol in the past year? Yes How often did you have a dri nk containing alcohol in the past year? 2 to 4 times a month (2 points) How many drinks did you have on a typical day when you were drinking in the past year? 1 or 2 drinks (0 point) How often did you have 6 or more drinks on one occasion in the past year? Never (0 point) Points 2 Interpretation Negative Section Notes: Nonsmoker; no sig alcohol Nonsmoker; no sig alcohol Problems Problem Type SNOMED Code ICD Code Onset Dates Problem Status W/U Status Risk Notes Problem 565637221 Encounter for screening for malignant neoplasm of colon (Z12.11) Active confirmed Problem 750626202 History of adenomatous polyp of colon (Z86.010) Active confirmed Problem Preprocedural examination (497251169099367) Preprocedural examination (Z01.818) Active confirmed Problem 803778230 Long-term use of aspirin therapy (Z79.82) Active confirmed Problem Long-term current use of anticoagulant (841962690) Anticoagulant long-term use (Z79.01) Active confirmed Plan Of Treatment Future Test Test Name Order Date COLONOSCOPY 01/16/2017 COLONOSCOPY 07/07/2020 Insurance Providers Payer Name Payer Address Payer Phone Subscriber Number Group Number Insured Name Patient Relationship to Insured Coverage Start Date Coverage End Date MEDICARE OF [place] [address] [place] [address] [id number] NORRIS STROUD Self - patient is the insured MEDICAID OF [facility] [address] [place] [address] [id number] NORRIS STROUD Self - patient is the insured Medical (General) History Medical History History ICD Code Hypertension Denies [place],DM,CVA,Lung disease,renal dise ase Hyperlipidemia Colonoscopy 10/[address] Estevez--2 t ubular adenomas removed Colonoscopy with tn in 7 with removal of an adenoma in the transverse colon and 2 hyperplastic polyp in the transverse colons Surgical History Surgery Date(Month/Year) Tubes in left ear > 30 yrs ago Right shoulder surgery Right inguinal hernia
--- OUTSIDE RECORDS SUMMARY | 2024-12-15 09:12 | XMS_ITS | Encounter Summary ---
Author Organization [facility] Address [address] [facility] 7[address] [place] [address] Care Team Providers Care Spray Blender Name Role Phone Name, Noman ENRIQUEZ Primary Care Provider [phone] Encounter Details Date Type Department Care Team (Late st Contact Info) Description 02/07/2023 Abstract [facility] [address] [place] [phone] Name, MD Noman [address] [place] [phone] Social History Tobacco Use Types Packs/Day Years Used Date Smoking Tobacco: Former Cigarettes Smokeless Tobacco: Never Depression Answer Date Recorded Patient Health Questionnaire-9 Score 0 12/31/2022 Depression Answer Date Recorded Patient Health Questionnaire-2 Score 0 12/31/2022 Sex and Gender Information Value Date Recorded Sex Assigned at Male 07/09/2022 10:17 AM EDT Legal Sex Male 10:17 AM EDT Gender Identity Male 07/09/2022 10:17 AM EDT Sexual Orientation Choose not to disclose 2021 10:17 AM EDT COVID-19 Exposure Response Date Recorded In the last 10 days, have yo u been in contact with someone who was confirmed or suspected to have Coronavirus/COVID-19? No / Unsure 01/24/2023 12:49 PM EDT documented as of this encounter Plan of Treatment Upcoming Encounters Date Type Department Care Team (Late st Contact Info) Description 12/30/2024 10:30 AM EDT Office Visit [facility] [address] [place] [address] [phone] Name, MD Noman [address] [place] [phone] documented as of this encounter Procedures Procedure Name Priority Date/Time Associated Diagnosis Comments COLONOSCOPY Routine 09/28/2020 11:57 AM EST documented in this encounter Results * Hm Colonoscopy (09/28/2020 11:57 AM EST) Colonoscopy Normal Normal Narrative Marina So - 09/28/2020 11:57 AM EST Recommended 5 year follow up us Historical Provider HEALTH MAINTENANCE Final Result documented in this encounter Visit Diagnoses Not on filedocumented in this encounter Additional Health Concerns Assessment Noted Time PHQ-9 Depression Total Score: 0 01/01/20 23 3:01 PM EDT documented as of this encounter Care Teams Spray Blender Relationship Specialty Start Date End Date Name, MD Noman [address] [place] [address] PCP - General Family Medicine 08/13/19 documented as of this encounter
[2024-12-15 11:10] LABS: MANUAL DIFF FLAG NO
[2024-12-15 11:23] LABS: Basophils Absolute Auto 0.1 X10*3/uL (0.0-0.2); Eosinophils Percent Auto 10.1 % (0-4); Hemoglobin 16.3 g/dl (14.0-18.0); Imm Gran Abs Auto 0.04 X10*3/uL (0.00-0.03); Imm Gran Pct Auto 0.4 % (0.0-0.4); Lymphocytes Absolute Auto 2.9 X10*3/uL (1.2-4.9); Lymphocytes Percent Auto 29.8 % (20-40); Mean Corpuscular HGB Conc 34.7 g/dl (31.0-36.0); Mean Corpuscular Hemoglobin 31.3 pg (27.0-33.0); Mean Corpuscular Volume 90.2 fL (80.0-98.0); Mean Platelet Volume 11.6 fL (9.4-12.4); Monocytes Absolute Auto 1.1 X10*3/uL (0.1-1.2); Monocytes Percent Auto 11.4 % (2-11); Neutrophils Absolute Auto 4.6 x10*3/uL (2.0-8.3); Neutrophils Percent Auto 47.3 % (45-73); Platelet Count 214 X10*3/uL (160-400); Red Blood Count 5.21 X10*6/uL (4.60-5.80); Red Cell Distribution Width 13.2 % (11.0-16.0); White Blood Count 9.7 X10*3/uL (4.8-10.8)
[2024-12-15 11:39] LABS: Alanine Aminotransferase 43 U/L (0-40); Albumin Level 4.3 g/dL (3.5-5.0); Alkaline Phosphatase 98 U/L (39-117); Anion Gap 12 (12-20); Aspartate Amino Transferase 31 U/L (5-37); Blood Urea Nitrogen 19 mg/dL (9-16); Calcium 9.1 mg/dL (8.4-10.2); Carbon Dioxide 27 mmol/L (22-29); Chloride 106 mmol/L (96-108); Cholesterol 152 mg/dL (<200); Estimated Glomerular Filt Rate > 60; Glucose Random 90 mg/dL (60-115); HDL Cholesterol 46 mg/dL (>40); LDL Cholesterol Calculated 87 mg/dL (<100); Potassium 3.5 mmol/L (3.3-5.1); Sodium 141 mmol/L (135-145); Total Protein 7.1 g/dL (6.5-8.0); Triglycerides 96 mg/dL (<150)
[2024-12-15 11:56] LABS: TSH reflex Free T4 2.56 uIU/mL (0.32-4.0)
== END 2024-12-15 08:44 | disposition home or self-care (01) ==
LOC: HO.HHCL 08:43
PROVIDERS: Visit Provider Internal Medicine Geriatric Medicine
DX: I48.0 Paroxysmal atrial fibrillation (principal); F32.A Depression, unspecified; E78.2 Mixed hyperlipidemia
CPT/HCPCS: 36415; 80053; 80061; 84443; 85025

== ENCOUNTER 2025-07-23 09:11 | Outpatient (AMB) | payer MEDICARE, SELFPAY ==
[2025-07-23 09:27] VITALS: BP 120/64; PULSE 94; BMI 32.3
--- NOTE | 2025-07-23 09:27 | A.OFFVIS_ITS ---
Vital Signs 07/23/25 09:27 Height 5 ft 4 in Weight 188 lb 4.396 oz BMI 32.3 BP 120/64 Blood Pressure Location Lt brachial Position Sitting Pulse 94 Pulse Source Monitor Intake Visit Reasons: [facility] sandra/jone daniel previous [facility] pt Intake Note: [facility] d/c Focus Puller Required: No Accompanied by: Self / Same As Patient Allergies No Known Allergies Allergy (Verified 07/23/25 09:28) Medication List - Last Reconciled 07/23/25 by MIRIAM Shelley amlodipine 5 mg PO QAM carvedilol 3.125 mg PO BID multivitamin 1 tab PO QAM rivaroxaban (Xarelto) 20 mg PO DAILY HPI HPI [facility] sandra/jone daniel previous [facility] pt: Details: The patient is a 75-year-old male presenting with coronary artery disease and atrial fibrillation. He experienced a eyb-AI-bvrtxshnj myocardial infarction in November 2020, with angioplasty performed for significant stenosis in the third obtuse marginal artery. Follow-up has been with [facility]. Echocardiogram on April 03, 2022, showed 60 to 65% ejection fraction, normal diastolic filling, mild tricuspid regurgitation, and mild pulmonary hypertension. Medications include amlodipine, carvedilol, and Xarelto, taken daily without bleeding issues. Long-standing atrial fibrillation reported by patient, with no recent chest pain or palpitations. Denies significant health changes, except for occasional vertigo. 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 The [facility] office has closed and he is now transferred his Cardiology care to our office. [facility] Medical History (Updated 07/23/25 @ 10:41 by MIRIAM Shelley) HTN (hypertension) Hypercholesteremia PAF (paroxysmal atrial fibrillation) Bradycardia Atrial fibrillation Elevated cholesterol HTN (hypertension) Surgical History (Updated 07/23/25 @ 10:41 by TAMMY ShelleyC) History of colonoscopy History of ear surgery H/O right inguinal hernia repair History of inguinal hernia repair History of shoulder surgery History of placement of ear tubes Hx of colonoscopy Family History Other CAD (coronary artery disease) Social History Housing: House Alcohol intake: current Alcohol intake frequency: a few times a month Alcohol type: beer service: No Current occupational status: retired Review of Systems Const All systems reviewed & are unremarkable except as noted in HPI and below Denies chills, Denies fatigue, Denies fever(s), Denies frequent falls, Denies weakness, Denies weight gain and Denies weight loss ENT Denies dizziness Card Denies chest pain, Denies leg edema, Denies lightheadedness, Denies palpitations, Denies dyspnea and Denies dyspnea on exertion Resp Denies cough, Denies dyspnea and Denies dyspnea on exertion GI Denies hematochezia Musc Denies abnormal gait, Denies muscle weakness, Denies numbness, Denies radiating pain into limb and Denies tingling Neuro Denies abnormal gait, Denies dizziness, Denies frequent falls, Denies numbness, Denies tingling and Denies weakness Endo Denies fatigue and Denies palpitations Physical Exam Vital Signs: Last Vital Signs Pulse 94 07/23/25 09:27 BP 120/64 07/23/25 09:27 BMI result Body Mass Index 32.3 Const General: cooperative, healthy appearing, comfortable and no acute distress Orientation/consciousness: patient oriented x3 Neck Neck: Yes normal visual inspection and Yes no JVD Resp Effort & Inspection: normal respiratory effort Auscultation: clear to auscultation bilaterally, no crackles, no rales, no rhonchi and no wheezes Cardio Rate: regular rate Rhythm: regular rhythm Heart sounds: S1 normal heart sound present, S2 normal heart sound present, no gallops, no murmurs and no rubs Neuro General: patient oriented x3 Extrem General: Yes normal to inspection, No no pedal edema and No calf tenderness Psych Appearance: grossly normal Mental Status: mental status grossly normal Speech and movement: Normal speech and movement present Office Procedures EKG Details: Today, read by me, atrial fibrillation, T-wave abnormality inferiorly, rate 94, QTC 462 milliseconds [id number], Complete Assessment & Plan Assessment & Plan (1) CAD (coronary artery disease): Code(s): I25.10 - Atherosclerotic heart disease of [place] coronary artery without angina pectoris Category: Medical Plan: History of CAD with NSTEMI 11/2020. Cardiac catheterization at that time showed left circumflex mid 60% stenosis, 3rd OM 99% stenosis, RCA distal 70% stenosis. He had angioplasty to the 3rd OM. He has followed at [facility] in his now transferring to our office. Will obtain most recent testing from them. EKG today is showing atrial fibrillation, rate 94. Currently denies any anginal symptoms. He is not on aspirin as he is on Eliquis. Continue metoprolol. He is not on statin for unclear reason. Will need to review this on prior cardiology note. Signs and symptoms of angina reviewed Office visit follow-up 6 months, sooner if needed. (2) Atrial fibrillation: Code(s): I48.91 - Unspecified atrial fibrillation Category: Medical Plan: History of atrial fibrillation that patient reports his long-term. Unknown if this is persistent or paroxysmal. Will review other cardiology notes once available. EKG today is confirming AFib, asymptomatic. At this time continue Eliquis for anticoagulation and continue metoprolol for rate control. (3) Non-STEMI (non-ST elevated myocardial infarction): Code(s): I21.4 - Non-ST elevation (NSTEMI) myocardial infarction Category: Medical Plan: As above (4) Hypercholesteremia: Code(s): E78.00 - Pure hypercholesterolemia, unspecified Category: Medical Plan: [place] LDL goal less than 70 in patient with CAD. Labs 12/15/2024 showed LDL 87. Recommend the start of statin therapy as long as no contraindications. (5) HTN (hypertension): Code(s): I10 - Essential (primary) hypertension Category: Medical Plan: Blood pressure goal less than 130/80. Well controlled at this time. No med changes made. Plan I discussed with the patient that the EKG shows atrial fibrillation with a heart rate of 94 bpm, but there are no concerning symptoms at this time. We will continue the current medication regimen and obtain records from [facility] to determine if any cardiac testing is needed at this time. The patient was informed about the possibility of receiving a call for any necessary testing. Continue to monitor for issues of bleeding, palpitations, chest discomfort, sob. Patient Instructions: - Continue taking amlodipine, carvedilol, and Xarelto as prescribed. - Attend follow-up appointments as scheduled. - Expect a call for any necessary testing, such as an ultrasound, if due. Patient was informed and verbally consented to the use of an ambient scribe for clinic note documentation during this visit. Visit time spent on chart review, interview, assessment, orders, documentation. Coding Level of Care Code Est Pt Level 4 (44480) Complex EM visit Add On G2211 Diagnoses CAD (coronary artery disease) I25.10 Atrial fibrillation I48.91 Non-STEMI (non-ST elevated myocardial infarction) I21.4 Hypercholesteremia E78.00 HTN (hypertension) I10 CPT Codes EKG - CPT: 85172-[id number], Complete ([id number]) Time Spent (min) 28
--- OUTSIDE RECORDS SUMMARY | 2025-07-23 09:50 | XMS_ITS | Patient Health Record ---
Author Organization [facility] Address [address] [place] [address] Care Team Providers Care Automotive Wholesale Parts Advisor Name Role Phone Name Noman ENRIQUEZ Primary Care Provider Zoran Beyer Unavailable [phone] Reason For Referral No Information Medications Medication SIG (Take, Route, Frequency, Duration) Notes Start Date End Date Status Metoprolol Succinate ER 25 MG TAKE 1 TABLET BY MOUTH EVERY DAY Oral; Duration: 30 Active Xarelto 20 MG TAKE 1 TABLET BY AKUA TH EVERY DAY WITH DINNER Oral; Duration: 60 Active Simvastatin 20 MG 1 tablet [...] Problem Status W/U Status Risk Notes Problem Screening for malignant neoplasm of colon (622328452) Encounter for screening for malignant neoplasm of colon (Z12.11) Active confirmed Problem History of adenomatous polyp of colon (721725389) History of adenomatous polyp of colon (Z86.010) Active confirmed Problem Preprocedural examination (955751663135975) Preprocedural examination (Z01.818) Active confirmed Problem Long-term current use of antiplatelet drug (619310060731353) Long-term use of aspirin therapy (Z79.82) Active confirmed Problem Long-term current use of anticoagulant (684106884) Anticoagulant long-term use (Z79.01) Active confirmed Plan Of Treatment Future Test Test Name Order Date COLONOSCOPY 01/16/2017 COLONOSCOPY 07/07/2020 Insurance Providers Payer Name Payer Address Payer Phone Subscriber Number Group Number Insured Name Patient Relationship to Insured Coverage Start Date Coverage End Date MEDICARE OF [place] [address] [place] [address] [id number] NORRIS STROUD Self - patient is the insured MEDICAID OF [facility] [address] [place] [address] [id number] NORRIS STROUD Self - patient is the insured Medical (General) History Medical History History ICD Code Hypertension Denies AR,DM,CVA,Lung disease,renal dise ase Hyperlipidemia Colonoscopy 10/[address] Estevez--2 t ubular adenomas removed Colonoscopy with nh in 7 with removal of an adenoma in the transverse colon and 2 hyperplastic polyp in the transverse colons Surgical History Surgery Date(Month/Year) Tubes in left ear > 30 yrs ago Right shoulder surgery Right inguinal hernia
--- OUTSIDE RECORDS SUMMARY | 2025-07-23 09:51 | XMS_ITS | Patient Health Record ---
Author Organization [facility] [place] Address [address] [place] [address] Care Team Providers Care Braille Operator Name Role Phone Name Noman ENRIQUEZ Primary Care Provider Ever Shaw Unavailable [phone] Allergies No Known Allergies Reason For Referral No Information Medications Medication SIG (Take, Route, Frequency, Duration) Notes Start Date End Date Status Carvedilol 12.5 MG 1 tablet with food O rally Twice a day; Duration: 30 day(s) Active Xarelto 20 MG 1 tablet with food O rally Once a day; Duration: 30 day(s) Active amLODIPine Besylate 5 MG 1 tablet Orally Once a day; Duration: 30 day(s) Active Atorvastatin Calcium 80 MG 1 tablet Oral ly Once a day; Duration: 30 day(s) Active Night Splint AFO - L1930 as directed Active Multivitamin Active Clopidogrel Bisulfate 75 MG 1 tablet Ora lly Once a day; Duration: 30 day(s) Active Custom Orthotics as directed [...] Status Risk Notes Problem Acquired hallux rigidus (8160706) Hallux rigidus, right foot (M20.21) Active confirmed Plan Of Treatment Pending Test Test Name Order Date ,[id number] TENDON SHEATH/LIGAMENT 0 10/19/202235936,[id number] TENDON SHEATH/LIGAMENT 0 01/29/2023 X ray : Ankle, right 3V 10/19/2022 Insurance Providers Payer Name Payer Address Payer Phone Subscriber Number Group Number Insured Name Patient Relationship to Insured Coverage Start Date Coverage End Date [facility] CCA S[employer] Claims [address] [place] [address] [id number] Tasha Macdonald Self - patient is the insured Medical (General) History Medical History History ICD Code CAD (Cholesterol) High blood pressure Surgical History Surgery Date(Month/Year) Hospitalization History Reason Date(Month/Year) [facility]- foot pain, xray
--- OUTSIDE RECORDS SUMMARY | 2025-07-23 09:51 | XMS_ITS | Data Portability ---
Author Organization [facility] Address [address] [place] [address] Care Team Providers Care Petroleum Terminal Plant Operator Name Role Phone Unavailable Referring Provider [facility] Referring Provider Assessment Encounter Date Assessment Date Assessment LastModified by Organization Details LastModified Time 10/23/2023 10/23/2023 I provided real -time medical direction via phone for this encounter, and was available for additional phone based assistance as needed. I have reviewed and agree with the Assessment and Plan as documented by the User Experience Manager. Patient given the opportunity to ask questions. As per above, 3 days of URI symptoms. Denies F/C. Good po intake. VSS and non-toxic per hog confinement system manager on the scene. Tested + yesterday and [...] serious symptoms, particularly fever chills, difficulty breathing [place] [address] Not available 10/23/2023 11:52:41 Plan of Treatment Reminders Order Date Submit Date Provider Last Modified By Organization Details Last Modified Time Details Appointments None recorded. Lab rapid SARS CoV 2 Ag, QL [place], respiratory specimen [address], [address] 11:52:42 Referral None recorded. Procedures None recorded. [...] IA, respiratory specimen positi ve Not Available [address], [address] 10/23/2023 11:42:31 Result Notes None recorded. Medical [...] blood by Pulse oximetry Heart rate Systolic And Diastolic Provider Name and Address Organization Details Last Updated DateTime 4 70899.8 g 14 /min 98.4 [degF] 157.48 cm 98 % 98 % 88 /min 124/80 mm[Hg] Not Available [facility] - production 4 [...] Diagnosis SNOMED-CT Code Diagnosis ICD10 Code Diagnosis IMO Codes Diagnosis Note Marva Cadena MD Main - [address] [address] 10/23/2023 11:41:32 10/23/2023 18:20:31 COVID-19 092317029 U07.1 Health Concerns Section Related Observation LastModified by Organization Detai ls LastModified Time None Recorded Concern Status LastModified by Organization Details LastModified Time None Recorded Advance Directives Directive None Recorded Payers Insurance Date Sequence Insurance Name Policy Number Policy Barber Covered Member ID Barber Member ID Guarantor Name 10/23/2023 1 [facility] - DOS ON OR AFTER 2022 - MEDICARE [place]ANTAGE [place] (MED[place]ARE REPLACEMENT/ADV ANTAGE - PPO) Tasha Corral [id number] Tasha Corral 10/23/2023 1 [facility] - DOS ON OR AFTER 2022 - DUAL ELIGIBLE - HALFWAY OPTIONS AND ONE CARE (MEDICARE REPLACEMENT/ADV ANTAGE - HMO) Tasha Corral [id number] Tasha Corral Notes Date Note Type Note [...] No telehealth in office today. Agrees to [facility] for eval of lung sounds and possible Rx for paxlovid. CDC guidelines for isolation reviewed. Reviewed home care advise, ER precautions and reasons to call back. .................. .................. .................. .................. .................. .................. .................. ............... CRC Nurse Triage Notes (Missy Burleson): Comments: CRC RN DID NOT NEED FURTHER INFO Marva Cadena MD [address] [facility],[address], [place], [address], PELON - ABELARDO, MADINA 10/23/2023 11:53:09 OBGyn Episode No OBEpisode recorded.
== END 2025-07-23 09:51 | disposition home or self-care (01) ==
LOC: HO.HCS 09:11
PROVIDERS: PCP Internal Medicine Geriatric Medicine; Visit Provider Nurse Practitioner Family
DX: I25.10 Atherosclerotic heart disease of native coronary artery without angina pectoris (principal); I48.91 Unspecified atrial fibrillation; I21.4 Non-ST elevation (NSTEMI) myocardial infarction; E78.00 Pure hypercholesterolemia, unspecified; I10 Essential (primary) hypertension
CPT/HCPCS: 93010; 99214; G2211

== ENCOUNTER → 2025-07-23 09:11 | Outpatient (BNVA) | payer MEDICARE, OTHER, SELFPAY | PROVIDERS: PCP Internal Medicine Geriatric Medicine; Visit Provider Nurse Practitioner Family | DX: I25.10 Atherosclerotic heart disease of native coronary artery without angina pectoris (principal); I48.91 Unspecified atrial fibrillation; I25.2 Old myocardial infarction; E78.00 Pure hypercholesterolemia, unspecified; I10 Essential (primary) hypertension; Z98.61 Coronary angioplasty status | CPT/HCPCS: 93005; 99212 ==

== ENCOUNTER → 2025-07-30 09:00 | Outpatient (REF) | payer MEDICARE, OTHER, SELFPAY ==
--- NOTE | 2025-07-30 09:03 | HM_ITS ---
* Total monitoring time 3 days. * Underlying rhythm is atrial fibrillation. * Average ventricular rate 79/Min. * Rare ventricular ectopy. * No significant pauses or high-grade AV blocks. * No patient markers or diary events. MTDD
--- OUTSIDE RECORDS SUMMARY | 2025-07-30 09:18 | XMS_ITS | Patient Health Record ---
Author Organization [facility] [place] Address [address] [place] [address] Care Team Providers Care Garment Fitter Name Role Phone Name Noman ENRIQUEZ Primary Care Provider Ever Shaw Unavailable [phone] Allergies No Known Allergies Reason For Referral [...] Status Risk Notes Problem Acquired hallux rigidus (8722318) Hallux rigidus, right foot (M20.21) Active confirmed Plan Of Treatment Pending Test Test Name Order Date ,[id number] TENDON SHEATH/LIGAMENT 0 10/19/202277141,[id number] TENDON SHEATH/LIGAMENT 0 01/29/2023 X ray : Ankle, right 3V 10/19/2022 Insurance Providers Payer Name Payer Address Payer Phone Subscriber Number Group Number Insured Name Patient Relationship to Insured Coverage Start Date Coverage End Date [facility] CCA SCO Claims [address] [place] [id number] Tasha Macdonald Self - patient is the insured Medical (General) History Medical History History ICD Code CAD (Cholesterol) High blood pressure Surgical History Surgery Date(Month/Year) Hospitalization History Reason Date(Month/Year) [facility], [place]
--- OUTSIDE RECORDS SUMMARY | 2025-07-30 09:18 | XMS_ITS | Clinical Summary ---
Author Organization [employer] [facility] Address [address] [place] [address] Care Team Providers Care Stave Hewer Name Role Phone Name, Noman ENRIQUEZ Primary Care Provider [phone] Allergies No known active allergies Medications Xarelto 20 MG tablet TAKE 1 TABLET BY MOUTH EVERY EVENING WITH DINNER 90 tablet 3 5 Active atorvastatin (Lipitor) 80 MG tabletIndication s:Atherosclerosi s of coronary artery of [place] heart, unspecified vessel or lesion type, unspecified whether angina present Take 1 tablet (80 mg) by mouth Once per day. 30 tablet 5 5 Active carvedilol (Coreg) 3.125 MG tabletIndication s:Hypertension, unspecified type TAKE 1 TABLET BY MOUTH TWICE DAILY WITH FOOD 180 tablet 3 5 Active amLODIPine (Norvasc) 5 MG tabletIndication s:Hypertension, unspecified type TAKE 1 TABLET BY MOUTH EVERY DAY IN THE MORNING 90 tablet 3 5 Active Multiple Vitamin (Multivitamin) tablet TAKE 1 TABLET BY MOUTH EVERY MORNING 90 tablet 3 5 Active tadalafil (Cialis) 20 MG tablet TAKE 1 TABLET 1 HOUR BEFORE SEXUAL RELATIONS ONCE DAILY NEEDED. 10 tablet 5 Active Active Problems Problem Noted Date Diagnosed [...] Class 1 obesity 07/30/2024 Paroxysmal atrial fibrillation (CMS/HCC) 022 Myocardial infarction 09/05/2022 Overview (05/14/2025): Hospitalization: Patient presented to [facility] 11/06/2020 with retrosternal chest burning, troponin peaked at 155.4, BP 153/86, pulse 46, EKG showed no ischemic changes. Patient was transferred to [facility] 11/07/2020, cardiac catheterization and balloon angioplasty to OM-2 / left circumflex was completed 11/09/2020. Metoprolol changed to carvedilol due to bradycardia, patient changed to high intensity statin, and anticoagulation with clopidogrel and ASA initiated in addition to the Xarelto his was using for stroke prevention give his paroxysmal A.fib Coronary atherosclerosis 09/05/2022 Obesity (BMI 30-39.9) 10/21/2018 Erectile dysfunction 02/18/2018 Blurring of visual image 06/01/2015 Perforation of tympanic membrane 10/23/2013 Tubular adenoma of colon 06/23/2012 Hyperlipidemia 06/23/2012 Essential hypertension 03/13/2012 Resolved Problems Problem Noted Date Diagnosed Date Resolved Date Overweight 05/22/2018 04/22/2024 Encounters Date Type Department Care Team Description 06/30/2025 Telephone [facility] MEDICINE [address] [place] [address] Luis Fuentes MA dec recalls 06/07/2025 Telephone [facility] [address] [place] [address] Name, MD Noman Prior Authorization 05/14/2025 10:30 AM EDT Office Visit [facility] [address] [place] [address] Name, MD Noman Atherosclerosis of [place] coronary artery of [place] heart without angina pectoris (Primary Dx); Paroxysmal atrial fibrillation (CMS/HCC); Swimmer's ear of left side, unspecified chronicity; Perforation of left tympanic membrane 05/14/2025 Travel 05/13/2025 Refill [facility] MEDICINE [address] [place] [address] Noman Tellez MD 05/13/2025 Telephone [facility] [address] [place] [address] Noman Tellez MD Chart Prep 05/06/2025 Patient Outreach [facility] [address] [place], [place] [phone] Noman Tellez MD Pre-visit Planning (SDOH negative. Tobacco screening negative. ) 05/05/2025 Telephone [facility] OPTOMETRY [address] [place] [address] Audra Parekh, OD 05/05/2025 Refill [facility] MEDICINE [address] [place] [address] Noman Tellez MD Hypertension, unspecified type from Last 3 Months Immunizations Immunization Administration Dates Next Due Influenza High-dose Quadriva [...] housing situation today? I have jesús belle 05/06/[address] you li ve. Do you have problems with any of the following? None of the above 05/06/2025 Food Insecurity Answer Date Recorded Within the past 12 months, y ou worried that your food would run out before you got money to buy more: Never True 05/06/2025 Within the past 12 months,th e food you bought just didn't last and you didn't have enough money to get more: Never True Transportation Answer Date Recorded In the past 12 months, has l ack of transportation kept you from medical appts, meetings, work or from getting things needed for daily living? No 05/06/2025 Utilities Answer Date Recorded In the past 12 months, has t he electric, gas, oil or water company threatened to shut off services in your home? No 05/06/2025 Depression Answer Date Recorded Patient Health Questionnaire-2 Score 0 01/03/2024 Internet Access Answer Date Recorded Internet Access Q1 Yes 05/06/2025 Internet Access Q2 Not on file 05/06/2025 Sex and Gender Information Value Date Recorded Sex Assigned at Male 07/09/2022 10:17 AM EDT Legal Sex Male 10:17 AM EDT Gender Identity Male 07/09/2022 10:17 AM EDT Sexual Orientation Choose not to disclose 2021 10:17 AM EDT Last Filed Vital Signs Vital Sign Reading Time Taken Comments Blood Pressure 118/83 05/14/2025 11:00 AM EDT Pulse 82 05/14/2025 10:39 AM EDT Temperature 36.1 C (96.9 F) 05/14/2025 10:39 AM EDT Respiratory Rate 12 05/14/2025 10:39 AM EDT Oxygen Saturation 97% 05/14/2025 10:39 AM EDT Inhaled Oxygen Concentration - - Weight 84.6 kg (186 lb 6.4 oz) 05/14/2025 10:39 AM EDT Height 162.6 cm (5' 4 ) 05/14/2025 10:39 AM EDT Body Mass Index 32 05/14/2025 10:39 AM EDT Plan of Treatment Upcoming Encounters Date Type Department Care Team (Late st Contact Info) Description 09/28/2025 11:15 AM EST Office Visit [facility] [address] [facility] [place] [address] Name, MD Noman [address] [facility] [place] [address] Health Maintenance Due Date Last Done Comments Dental Oral Exam 1948 Dental Prophylaxis 1948 Dental X-Ray: Full Mouth 1948 Alcohol/Substance Use Screening 1960 RSV Patients and Patients Aged 60 years or older (1 - 1-dose 75+ series) 02/01/2023 Depression Screening 01/02/2025 01/03/2024, 01/03/20 COVID-19 Vaccine ( - season) 2025 07/14/2021, 11/23/2020 Influenza Vaccine (#1) 2025 , 07/20/2024, 07/02/2023, Additional history exists Dental X-Ray: Bitewings 07/31/2025 07/30/2024 Zoster Vaccines (2 of 3) 08/14/2025 10/25/2016 Pos tponed from 12/20/2016 (Patient Refused) SDOH Screening 05/06/2026 05/06/2025 Tobacco Screening 05/14/2026 05/14/2025 DTaP/Tdap/Td Vaccines (2 - Td or Tdap) 10/05/2026 10/05/2016, 07/29/2006 Lipid Panel 12/15/2029 12/15/2024, 12/08, 01/01/2023, Additional history exists Colonoscopy Discontinued 09/28/2020 Colorectal Cancer Screening Discontinued Pneumococcal Vaccine: 50+ Years Completed 07/02/2023, 11/10/2020, 07/29/2006 Hepatitis C Screening Completed 04/22/2024 CT Colonography Discontinued FIT DNA/Cologuard Discontinued FIT [...] patient's age to complete this topic Meningococcal B Vaccine Aged Out No l onger eligible based on patient's age to complete [...] Procedure Name Priority Date/Time Associated Diagnosis Comments LIPID PANEL, STANDARD Routine 12/15/2024 8:45 AM EDT Paroxysmal atrial fibrillation (CMS/HCC) Mixed hyperlipidemia BITEWING - SINGLE RADIOGRAPHIC IMAGE Routine 07/30/2024 9:00 AM EST Vertical fracture of root of tooth HEPATITIS C AB W/REFL TO HCV RNA, QN, PCR Routine 04/22/2024 11:45 AM EDT Need for hepatitis C screening test HM COLONOSCOPY Routine 09/28/2020 11:57 AM EST from Last 3 Months or Most Recently Relevant to Health Maintenance Results * Lipid Panel, Standard (12/15/2024 8:45 AM EDT) Triglycerides 96 <150 mg/dL [facility] Comment:Desirable Triglyceri de: less than 150 mg/dLBorderline High Triglyceride 150-199 mg/dLHigh Triglyceride: 200-499 mg/dLVery High Triglyceride: greater than or equal to 5OO mg/dL Cholesterol 152 <200 mg/dL [facility] Comment:Desirable Cholestero l: less than 200 mg/dLBorderline High Cholesterol: 200-239 mg/dLHigh Cholesterol: greater than 239 mg/dL LDL Cholesterol Calculated 87 <100 mg/dL [facility] Comment:Desirable LDL: less than 100 mg/dLNear Optimal/Above Optimal LDL: 110- 129 mg/dLBorderline High LDL: 130-159 mg/dLHigh LDL: 160-189 mg/dLVery High LDL: greater than or equal to 190 mg/dL HDL Cholesterol 46 >40 mg/dL [facility] Comment:Desirable HDL: great er than 40 mg/dL Note: This HDL assay may give artificially low results in patients with liver disease. Blood Venous blood specimen / Unknown 12/15/2024 8:45 AM EDT 12/15/2024 11:07 AM EDT Noman Tellez MD LAB BLOOD ORDERABLES Final Resul t Performing Organization Address [facility] Co de Phone Number [facility] [address] [place] [address] [phone] * Hepatitis C Antibody with Reflex to HCV, RNA, Quantitative, Real-Time PCR (04/22/2024 11:45 AM EDT) Hepatitis C Antibody Nonreactive Nonreactive [facility] Comment:Antibodies to HCV no t detected; does not exclude early acuteHCV infection. Blood Venous blood specimen / Unknown 04/22/2024 11:45 AM EDT 04/22/2024 1:17 PM EDT us Noman Tellez MD LAB BLOOD ORDERABLES Final Resul t Performing Organization Address [facility] Co de Phone Number [facility] [address] [place] [address] [phone] * Hm Colonoscopy (09/28/2020 11:57 AM EST) Colonoscopy Normal Normal Narrative Marina So - 09/28/2020 11:57 AM EST Recommended 5 year follow up Historical Provider HEALTH MAINTENANCE Final Result from Last 3 Months or Most Recently Relevant to Health Maintenance Insurance [employer] MEDICARE REPLACEMENT DENTAL - HSN FULL (MEDICAID) Care Teams Stave Hewer Relationship Specialty Start Date End Date Name, MD Noman [address] [place] [address] PCP - General Family Medicine 08/13/19
--- OUTSIDE RECORDS SUMMARY | 2025-07-30 09:18 | XMS_ITS | Data Portability ---
Author Organization [facility] [employer] [facility] Address [address] [place] [address] Care Team Providers Care Saturation Equipment Operator Name Role Phone Unavailable Referring Provider [facility] Referring Provider [phone] Assessment Encounter Date Assessment Date Assessment LastModified by Organization Details LastModified Time 10/23/2023 10/23/2023 I provided real -time medical direction via phone for this encounter, and was available for additional phone based assistance as needed. I have reviewed and agree with the Assessment and Plan as documented by the Trading Floor Operator. Patient given the opportunity to ask questions. As per above, 3 days of URI symptoms. Denies F/C. Good po intake. VSS and non-toxic per maintenance specialist on the scene. Tested + yesterday and [...] serious symptoms, particularly fever chills, difficulty breathing [place] [address] Not available 10/23/2023 11:52:41 Plan of Treatment Reminders Order Date Submit Date Provider Last Modified By Organization Details Last Modified Time Details Appointments None recorded. Lab rapid SARS CoV 2 Ag, QL IA, respiratory specimen [address], [address] 11:52:42 Referral None recorded. Procedures None recorded. [...] respiratory specimen positi ve Not Available Main [address], [address] 10/23/2023 11:42:31 Result Notes None recorded. Medical [...] rate Body temperature Body height Oxygen saturation Heart rate Systolic And Diastolic Provider Name and Address Organization Details Last Updated DateTime 4 31735.8 g 14 /min 98.4 [degF] 157.48 cm 98 % 88 /min 124/80 mm[Hg] Not [...] Diagnosis Note Marva Cadena MD Main - [address] [address] 10/23/2023 11:41:32 10/23/2023 18:20:31 COVID-19 020852216 U07.1 Health Concerns Section Related Observation LastModified by Organization Detai ls LastModified Time None Recorded Concern Status LastModified by Organization Details LastModified Time None Recorded Advance Directives Directive None Recorded Payers Insurance Date Sequence Insurance Name Policy Number Policy Barber Covered Member ID Barber Member ID Guarantor Name 10/23/2023 1 [facility] - DOS ON OR AFTER 2022 - MEDICARE [place]ANTAGE [place]ACEMENT/ADV ANTAGE - PPO) Tasha Ellis Corral [id number] Tasha Ellis Corral 10/23/2023 1 [facility] - DOS ON OR AFTER 2022 - DUAL ELIGIBLE - JAIL OPTIONS AND ONE CARE (MEDICARE REPLACEMENT/ADV ANTAGE - HMO) Tasha Ellis Corral [id number] Tasha Ellis Corral Notes Date Note Type Note Provider [...] NEED FURTHER INFO Marva Cadena MD [address] [facility],[address], [place], [address], [facility] [employer] 10/23/2023 11:53:09 OBGyn Episode No OBEpisode recorded.
--- OUTSIDE RECORDS SUMMARY | 2025-07-30 09:18 | XMS_ITS | Patient Health Record ---
Author Organization [facility] Address [address] [place] [id number] Care Team Providers Care Water Vessel Captain Name Role Phone Name Noman ENRIQUEZ Primary Care Provider Zoran Beyer Unavailable [phone] Reason For Referral No Information Medications Medication SIG (Take, Route, Frequency, Duration) Notes Start Date End Date Status Metoprolol Succinate ER 25 MG Tablet Extended Release 24 Hour TAKE 1 TABLET BY MOUTH EVERY DAY Oral; Duration: 30 Active Xarelto 20 MG Tablet TAKE 1 TABLET BY MO UTH EVERY DAY WITH DINNER Oral; Duration: 60 Active Simvastatin 20 MG Tablet 1 tablet in the evening Orally Once a day Active Immunizations Vaccine Route Administration Date Status Comme nts Flu vaccine no Preserv 3 and > Unknown 08/21/2016 Admin istered Influenza Unknown 05/18/2020 Administered Social History Tobacco Use: Social History Observation Description Date Details (start date - stop date) Former Smoker NA - NA Social History Drugs/Alcohol: Social Info Question Answer Notes Alcohol Screen Did you have a drink containing alcohol in the past year? Yes How often did you have a drink containing alcohol in the past year? 2 to 4 times a month (2 points) How many drinks did you have on a typical day when you were drinking in the past year? 1 or 2 drinks (0 point) How often did you have 6 or more drinks on one occasion in the past year? Never (0 point) Points 2 Interpretation Negative Tobacco Use: Social Info Question Answer Notes Tobacco Use/Smoking Patient is a former smoker How long has it been since you last smoked? > 10 years Additional Details Category Social Info Options Details Miscellaneous: Marital status: Occupation: retired Section Notes: Nonsmoker; no sig alcohol Nonsmoker; no sig alcohol Problems Problem Type SNOMED Code ICD Code Onset Dates Problem Status W/U Status Risk Notes Problem Screening for malignant neoplasm of colon (978205326) Encounter for screening for malignant neoplasm of colon (Z12.11) Active confirmed Problem History of adenomatous polyp of colon (335847276) History of adenomatous polyp of colon (Z86.010) Active confirmed Problem Preprocedural examination (120252192881459) Preprocedural examination (Z01.818) Active confirmed Problem Long-term current use of antiplatelet drug (631122128024929) Long-term use of aspirin therapy (Z79.82) Active confirmed Problem Long-term current use of anticoagulant (542523697) Anticoagulant long-term use (Z79.01) Active confirmed Plan Of Treatment Future Test Test Name Order Date COLONOSCOPY 01/16/2017 COLONOSCOPY 07/07/2020 Insurance Providers Payer Name Payer Address Payer Phone Subscriber Number Group Number Insured Name Patient Relationship to Insured Coverage Start Date Coverage End Date MEDICARE OF [place] [address] [facility] [place] [address] [id number] NORRIS STROUD Self - patient is the insured [employer] [facility] [address] [place] [address] [id number] NORRIS STROUD Self - patient is the insured Medical (General) History Medical History History ICD Code Hypertension Denies SD,DM,CVA,Lung disease,renal dise ase Hyperlipidemia Colonoscopy 10/[address] Estevez--2 t ubular adenomas removed Colonoscopy with ar in 7 with removal of an adenoma in the transverse colon and 2 hyperplastic polyp in the transverse colons Surgical History Surgery Date(Month/Year) Tubes in left ear > 30 yrs ago Right shoulder surgery Right inguinal hernia
--- OUTSIDE RECORDS SUMMARY | 2025-07-30 09:18 | XMS_ITS | Encounter Summary ---
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
--- OUTSIDE RECORDS SUMMARY | 2025-07-30 09:18 | XMS_ITS | Encounter Summary ---
Author Organization [facility] Address [address] [facility] [address] [place] [address] Care Team Providers Care Painter Interior Finish Name Role Phone Name, Noman ENRIQUEZ Primary Care Provider [phone] Encounter Details Date Type Department Care Team (Late st Contact Info) Description 02/07/2023 Abstract [facility] [address] [place] [address] [phone] Name, MD Noman [address] [place] [address] [phone] Social History Tobacco Use Types Packs/Day Years [...] Description 09/28/2025 11:15 AM EST Office Visit [facility] [address] [place] [address] [phone] Name, MD Noman [address] [place] [address] [phone] documented as of this encounter Procedures Procedure Name Priority Date/Time Associated Diagnosis Comments COLONOSCOPY Routine 09/28/2020 11:57 AM EST documented in this encounter Results * Colonoscopy (09/28/2020 11:57 AM EST) Colonoscopy Normal Normal Narrative Marina So - 09/28/2020 11:57 AM EST Recommended 5 year follow up Historical Provider HEALTH MAINTENANCE Final Result documented in this encounter Visit Diagnoses Not on filedocumented in this encounter Additional Health Concerns Assessment Noted Time PHQ-9 Depression Total Score: 0 01/01/20 23 3:01 PM EDT documented as of this encounter Care Teams Painter Interior Finish Relationship Specialty Start Date End Date Name, MD Noman [address] [place] [address] PCP - General Family Medicine 08/13/19 documented as of this encounter
== END ==
LOC: HO.CARD 09:00
PROVIDERS: PCP Internal Medicine Geriatric Medicine; Visit Provider Nurse Practitioner Family
DX: I48.91 Unspecified atrial fibrillation (principal)
CPT/HCPCS: 93242

== ENCOUNTER → 2025-07-30 09:03 | Outpatient (BNV) | payer MEDICARE, SELFPAY | PROVIDERS: PCP Internal Medicine Geriatric Medicine; Visit Provider Internal Medicine | DX: I49.3 Ventricular premature depolarization (principal) | CPT/HCPCS: 93244 ==